=== PATIENT | male | born 1955 | race Caucasian/White ===

== ENCOUNTER 2021-09-19 20:42 | Inpatient (IN) | payer MEDICARE, SELFPAY ==
--- NOTE | ~2021-09-19 | CT_ITS ---
EXAMINATION: CT brain wo con DATE: 09/19/2021 22:22 INDICATION: syncope episode today with dizziness . TECHNIQUE: Computed tomography (CT) of the head was performed without intravenous contrast. The mA wa s adjusted according to patient size. Iterative reconstruction technique was employed. The dose-lengt h product was 681.00 mGy-cm. COMPARISON: None FINDINGS: No acute intracranial hemorrhage or extra-axial fluid collection. No hydrocephalus, mass, or herniation. No acute ischemic infarct. Unremarkable dural venous sinus attenuation. No acute osseous abnormality. The aerated spaces are clear. Atherosclerotic intracranial consultations. Bilateral basal ganglia calcifications. IMPRESSION: No acute intracranial process. Reviewed, dictated and finalized at location K.
--- NOTE | ~2021-09-19 | US_ITS ---
EXAMINATION: US abdomen limited DATE: 09/21/2021 15:39 INDICATION: Liver mass. TECHNIQUE: Multiple grayscale and Doppler ultrasound images of the abdomen were obtained. COMPARISON: CT abdomen and pelvis 09/21/2021 FINDINGS: The visualized portions of the head and body of the pancreas are normal. There is diffuse h epatic steatosis. There is a 3.1 cm hypoechoic mass in the liver. There is normal flow in main portal vein. The gallbladder is normal in size. No gallstones or gallbladder wall thickening. There was no sonographic Hauser sign. The common duct is normal and measures 4 mm. IMPRESSION: 1. 3.1 cm liver mass, which may be benign or malignant. Abdomen MRI without and with contrast is adrien mmended. 2. Diffuse hepatic steatosis. Reviewed, dictated and finalized at location B. IMPRESSION: 1. 3.1 cm liver mass, which may be benign or malignant. Abdomen MRI without and with contrast is recommended. 2. Diffuse hepatic steatosis.
--- NOTE | ~2021-09-19 | XR_ITS ---
EXAMINATION: XR chest 2V DATE: 09/20/2021 13:09 INDICATION: Fever. Syncope. TECHNIQUE: Frontal and lateral views of the chest were obtained on 3 radiographs. COMPARISON: None. FINDINGS: There is elevation of right hemidiaphragm. There is mild atelectasis in the lower lung zone s. No pleural effusion or pneumothorax. The heart size is normal. IMPRESSION: 1. Elevation of right hemidiaphragm. 2. Mild atelectasis in the lower lung zones. Reviewed, dictated and finalized at location B.
--- NOTE | ~2021-09-19 | CT_ITS ---
EXAMINATION: CT abdomen pelvis wo con DATE: 09/21/2021 09:35 INDICATION: Febrile and leukocytosis. TECHNIQUE: Computed tomography (CT) of the abdomen and pelvis was performed without intravenous contr ast. Automated exposure control and iterative reconstruction technique were employed. The dose-length product was 605.46 mGy-cm. COMPARISON: None FINDINGS: Atelectasis with associated volume loss in the right lower lobe and prominent eventration of the righ t hemidiaphragm. Additional small amount of dependent and discoid atelectasis in the left lower lobe. Heart size is normal. No pericardial or pleural effusion. Large geographic region of hepatic steatos is at the dome of the liver. Indeterminate 2.6 x 2.1 cm hypodense lesion with irregular lobular leoncio ns in segment 5 of the liver. Gallbladder, spleen, pancreas, bilateral adrenal glands and right kidne y are normal. 1.4 cm exophytic cyst at the lower pole of the left kidney. Bladder is normal. Prostato megaly measuring 4.6 x 3.8 cm. There is some stool in the distal sigmoid colon with small amount of f luid scattered throughout the more proximal colon consistent with nonspecific diarrhea. Small bowel a nd appendix are normal. No bowel obstruction. No free intraperitoneal gas or fluid. No pathologically enlarged abdominal or pelvic lymphadenopathy. Small fat-containing left inguinal hernia. There is ca lcified atherosclerosis of the aorta and many of the other arteries. Small amount of calcification al christal the tunica at the base of the penis consistent with Peyronie's disease. Small bone island at the left femoral head. Mild scattered degenerative skeletal changes in the spine and pelvis. IMPRESSION: 1. Fluid throughout the proximal to mid colon consistent with nonspecific diarrhea. Correlate clinica lly for gastroenteritis. 2. Indeterminate 2.6 x 2.1 cm hypodense lesion in the right hepatic lobe. Differential would include small region of hepatic steatosis with larger region seen at the dome of liver, neoplasm either benig n or malignant or potentially hepatic abscess in the appropriate clinical setting. Recommend further evaluation with pre and postcontrast imaging. Favor MRI over CT. 3. Atelectasis in the bilateral lower lobes more prominent on the right where there is eventration of the right hemidiaphragm. 4. Small fat-containing left inguinal hernia. 5. Prostatomegaly. Reviewed, dictated and finalized at location A. IMPRESSION: 1. Fluid throughout the proximal to mid colon consistent with nonspecific diarr hea. Correlate clinically for gastroenteritis. 2. Indeterminate 2.6 x 2.1 cm hypodense lesion in the right hepatic lobe. Diffe rential would include small region of hepatic steatosis with larger region seen at the dome of liver, neoplasm either benign or malignant or potentially hepat ic abscess in the appropriate clinical setting. Recommend further evaluation wi th pre and postcontrast imaging. Favor MRI over CT. 3. Atelectasis in the bilateral lower lobes more prominent on the right where t here is eventration of the right hemidiaphragm. 4. Small fat-containing left inguinal hernia. 5. Prostatomegaly.
[2021-09-19 21:28] VITALS: BP 124/68; PULSE 108; RESP 20; TEMP 37.4; O2SAT 100
[2021-09-19 21:35] LABS: Glucose Point of Care 348 mg/dl (65-105)
--- NOTE | 2021-09-19 21:56 | ECG_ITS ---
Measurements Intervals [place] Rate: 110 P: 23 NC: 208 QRS: 12 QRSD: 81 T: -38 QT: 291 QTc: 394 Interpretive Statements SINUS TACHYCARDIA MINIMAL VOLTAGE CRITERIA FOR LVH, CONSIDER NORMAL VARIANT [MEETS CRITERIA IN ONE OF: R(aVL), S(V1), R(V5), R(V5/V6)+S(V1)] MODERATE T-WAVE ABNORMALITY, CONSIDER LATERAL ISCHEMIA [-0.1+ mV T-WAVE IN I/aVL/V5/V6] MODERATE T-WAVE ABNORMALITY, CONSIDER INFERIOR ISCHEMIA [-0.1+ mV T-WAVE IN II/aVF] ABNORMAL ECG NO PREVIOUS ECG AVAILABLE FOR COMPARISON Electronically Signed On 09-20-2021 10:02:13 CDT by Brandt Newell M.D.
--- NOTE | 2021-09-19 21:59 | ED.GENADULT ---
HPI - General Adult General Chief complaint: Nausea/Vomiting/Diarrhea Stated complaint: passed out, nausea History of Present Illness HPI narrative: The patient is a 66-year-old male with history of hypertension, hyperlipidemia, and diabetes. His hemoglobin A1c at 1 point was 11 at another point was 6-1/2. He is not on any diabetes medications at this point. He has an appointment to see his primary care provider in the next 2 weeks for a routine checkup. He presents today with an episode of syncope. He was sitting on the recliner and felt slightly dizzy. He got up and walked for about 20 ft then felt dizzy and lightheaded: he then had a syncopal episode that lasted 1 minute. No injuries. Did have nausea and an episode of dry heaves on the way here to the emergency room. Did have a loose diarrheal stool this morning. There is mild epigastric abdominal discomfort without radiation. No headache or diplopia or blurred vision or chest pain or pressure. No motor or sensory deficits. No urinary or respiratory complaints. Accu-Chek here in triage was 348. He has had 3-4 prior episodes of syncope in his lifetime, most recently 2 years ago at the time of that he had COVID-19. Related Data Home Medications Medication Instructions Recorded Confirmed amlodipine 10 mg tablet 1 tablet PO DAILY 09/19/21 09/19/21 aspirin 81 mg capsule 81 mg PO DAILY 09/19/21 09/19/21 atorvastatin 20 mg tablet 1 tablet PO DAILY 09/19/21 09/19/21 ezetimibe 10 mg tablet 1 tablet PO DAILY 09/19/21 09/19/21 losartan 50 mg-hydrochlorothiazide 1 tablet PO DAILY 09/19/21 09/19/21 12.5 mg tablet sertraline 50 mg tablet 1 tablet PO DAILY 09/19/21 09/19/21 Allergies Allergy/AdvReac Type Severity Reaction Status Date / Time clindamycin Allergy Unknown Verified 09/19/21 21:28 Penicillins Allergy Unknown Verified 09/19/21 21:28 Review of Systems Review of Systems: All systems reviewed & are unremarkable except as noted in HPI and below Constitutional: Constitutional: Reports no additional constitutional complaints, Denies anorexia, Denies body ache(s), Denies chills, Denies excessive sweating, Reports fatigue, Denies fever(s), Denies frequent falls, Denies headache(s), Reports malaise and Denies poor appetite Eyes: Eyes: Reports no additional eye complaints, Denies blurry vision, Denies change in vision, Denies irritation, Denies itchy eyes and Denies photophobia ENT: Reports system reviewed and no additional complaints, except as documented, Reports Normal hearing present, Denies change in voice, Denies dysphagia, Denies vertigo, Denies dizziness, Denies ear discharge, Denies headache(s), Denies hearing loss, Denies hoarseness, Denies nasal congestion, Denies neck pain, Denies sinus pressure, Denies sore throat and Denies throat swelling Cardiovascular: Cardiovascular: Reports no additional cardiovascular complaints, Denies chest pain, Denies syncope, Denies rapid heart rate, Denies irregular heart rhythm, Denies leg edema, Denies dyspnea and Denies slow heart rate Respiratory: Respiratory: Reports no additional respiratory complaints, Denies cough, Denies dyspnea, Denies stridor and Denies wheezing Gastrointestinal: Gastrointestinal: Reports no additional gastrointestinal complaints, Reports abdominal pain (epigastric ), Denies melena, Denies hematochezia, Denies dysphagia, Reports diarrhea, Reports nausea and Reports vomiting Genitourinary: Genitourinary: Denies hematuria, Denies oliguria, Denies dysuria, Denies flank pain, Denies urinary frequency and Denies urinary urgency Musculoskeletal: Musculoskeletal: Reports no additional musculoskeletal complaints, Denies abnormal gait, Denies back pain, Denies myalgias, Denies arthralgias, Denies joint swelling, Denies limited range of motion, Denies muscle cramps, Denies muscle weakness, Denies neck pain and Denies numbness Integumentary/Breasts: Skin/Breast: Reports system reviewed and no additional complaints, e
[2021-09-19] MEDS: SODIUM CHLORIDE 0.9% IV 1,000 ML 999 ML IV CONT (22:06)
[2021-09-19] MEDS: ONDANSETRON INJ 4 MG/2 ML VIAL IV PUSH (22:06)
[2021-09-19] MEDS: INSULIN HUMAN REGULAR (*BKC) 100 UNITS/ML IV PUSH ×2 (22:07→23:24)
[2021-09-19 22:10] LABS: Basophils Absolute Auto 0.02 K/mm3 (0.00-0.10); Basophils Percent Auto 0.1 % (0.0-1.0); Eosinophils Absolute Auto 0.01 K/mm3 (0.02-0.50); Eosinophils Percent Auto 0.1 % (1.0-6.0); Hematocrit 44.9 % (37.0-46.0); Hemoglobin 15.5 g/dL (12.4-15.3); Immature Granulocyte Absolute 0.06 K/mm3 (0.00-0.00); Immature Granulocyte Percent A 0.4 % (0.0-0.0); Lymphocytes Absolute Auto 0.39 K/mm3 (1.10-4.50); Lymphocytes Percent Auto 2.9 % (18.0-42.0); Mean Corpuscular HGB Conc 34.5 g/dL (32.0-36.0); Mean Corpuscular Hemoglobin 29.8 pg (27.0-31.0); Mean Corpuscular Volume 86.3 fL (78.0-102.0); Mean Platelet Volume 9.4 fl (8.7-11.0); Monocytes Absolute Auto 0.59 K/mm3 (0.10-0.90); Monocytes Percent Auto 4.4 % (2.0-11.0); Neutrophils Absolute Auto 12.4 K/mm3 (1.7-7.2); Neutrophils Percent Auto 92.1 % (50.0-70.0); Platelet Count Result 260 K/mm3 (150-420); Red Cell Distribution Width 12.3 % (11.6-14.4); White Blood Count 13.4 K/mm3 (4.8-10.8)
[2021-09-19 22:19] LABS: Amphetamine Screen Urine Negative (Negative); Barbiturate Screen Urine Negative (Negative); Benzodiazepines Screen Urine Negative (Negative); Cannabinoid Screen Urine Negative (Negative); Cocaine Screen Urine Negative (Negative); Methadone Screen Urine Negative (Negative); Opiate Screen Urine Negative (Negative); Phencyclidine Screen Urine Negative (Negative)
[2021-09-19 22:27] LABS: Alanine Aminotransferase 53 U/L (16-63); Albumin Level 4.1 g/dL (3.4-5.0); Alkaline Phosphatase 112 U/L (46-116); Amylase 64 U/L (25-115); Anion Gap 9 mmol/L (8-16); Aspartate Amino Transferase 23 U/L (15-37); Bilirubin,Total 0.8 mg/dL (0.00-1.00); Blood Urea Nitrogen 18 mg/dL (7-18); Calcium 9.3 mg/dL (8.5-10.1); Carbon Dioxide 29 mmol/L (21-32); Chloride 98 mmol/L (98-108); Estimated CRCL calculation 42 ml/min; Estimated Glomerular Filt Rate 48; Ethanol < 3 mg/dL (0-6); Glucose 387 mg/dL (70-99); Lipase 134 U/L (73-393); Magnesium 1.6 mg/dL (1.8-2.4); Osmolality Calculated 299 mOsm/kg (285-295); Potassium 3.5 mmol/L (3.5-5.1); Sodium 136 mmol/L (136-145); Total Protein 7.7 g/dL (6.4-8.2); Troponin I 5.4 ng/L (0.00-60.4)
[2021-09-19 22:55] LABS: Glucose Point of Care 317 mg/dl (65-105)
--- NOTE | 2021-09-19 23:00 | PC.NURSE ---
Pt resting, continuing to watch pts. Blood sugar p being given IV insulin. Pt has no c/o and denies any sxs at this time, VSS.
[2021-09-19 23:34] VITALS: BP 118/83; PULSE 104; RESP 18; O2SAT 94; O2SAT 95
[2021-09-19 23:45] VITALS: O2SAT 93
[2021-09-19 23:46] VITALS: BP 129/71; O2SAT 94
[2021-09-19 23:51] LABS: Glucose Point of Care 323 mg/dl (65-105)
[2021-09-19 23:56] LABS: Acetone Negative (Negative); Add Urine Microscopic? YES; Appearance Urine Clear (Clear); Bilirubin Urine Negative (Negative); Blood Urine Negative (Negative); Color Urine Light Yellow (Yellow); Glucose Urine UA 3+ (Negative); Ketones Urine Negative (Negative); Leukocyte Esterase Ur Negative LEU/UL (Negative); Nitrate Urine Negative (Negative); Protein Urine Trace (Negative); Specific Grav Ur 1.015 (1.010-1.020); Urobilinogen Urine 0.2 mg/dL (0.2-1.0)
[2021-09-20] VITALS (47 sets, daily range): BP systolic 67–141; BP diastolic 42–96; PULSE 98–164; RESP 16–32; TEMP 37.2–38.7; O2SAT 91–97; BMI 29.6
[2021-09-20 00:04] LABS: Bacteria Urine Trace /hpf; RBC Urine 0-2 /hpf (0-2); WBC Urine 0-3 /hpf (0-3)
[2021-09-20 00:29] LABS: Glucose Point of Care 347 mg/dl (65-105)
[2021-09-20] MEDS: INSULIN HUMAN REGULAR (*BKC) 100 UNITS/ML 8 UNITS IV PUSH (00:52)
--- NOTE | 2021-09-20 01:09 | PC.NURSE ---
Pt resting, no changes in condition. Will continue to monitor blood sugar p given another 8U IVP Reg. insulin per order. VSS.
--- NOTE | 2021-09-20 01:59 | PC.NURSE ---
Pts B.S. now 235, pt resting, no c/o, vss. ERP in to discuss POC for d/c home and f/u care.
--- NOTE | 2021-09-20 02:12 | PC.NURSE ---
called stating her was going out again like at home , Nurse entered room, pt was unresponsive, diaphoretic and pupils dilated. BP noted to be 67/42. Pt slowly awakened p few minutes, pt placed on monitor showing ST, and BS now 250. Orders received from ERP for 1L bolus NS.
[2021-09-20] MEDS: SODIUM CHLORIDE 0.9% IV 1,000 ML 999 ML IV CONT (02:15)
[2021-09-20 02:21] LABS: Glucose Point of Care 250 mg/dl (65-105)
--- NOTE | 2021-09-20 02:21 | PC.NURSE ---
IVF infusing per order, Vance notified for pt admission.
--- NOTE | 2021-09-20 02:46 | PC.NURSE ---
ERP spoke to KRISTA Woodard about admission. Order to admit for full admission. Pt and aware on POC. VSS at this time c IVF bolus infusing.
[2021-09-20] MEDS: SODIUM CHLORIDE 0.9% IV 1,000 ML 125 ML IV CONT (03:15)
[2021-09-20 03:28] LABS: SARS-CoV-2 RNA PCR Negative (Negative)
[2021-09-20 03:45] LABS: Basophils Absolute Auto 0.01 K/mm3 (0.00-0.10); Basophils Percent Auto 0.1 % (0.0-1.0); Hemoglobin 12.9 g/dL (12.4-15.3); Immature Granulocyte Absolute 0.06 K/mm3 (0.00-0.00); Immature Granulocyte Percent A 0.5 % (0.0-0.0); Lymphocytes Absolute Auto 0.37 K/mm3 (1.10-4.50); Mean Corpuscular HGB Conc 33.9 g/dL (32.0-36.0); Mean Corpuscular Hemoglobin 29.5 pg (27.0-31.0); Mean Platelet Volume 9.6 fl (8.7-11.0); Monocytes Absolute Auto 0.73 K/mm3 (0.10-0.90); Monocytes Percent Auto 5.9 % (2.0-11.0); Neutrophils Absolute Auto 11.3 K/mm3 (1.7-7.2); Neutrophils Percent Auto 90.5 % (50.0-70.0); Platelet Count Result 228 K/mm3 (150-420); Red Blood Count 4.37 M/mm3 (4.70-6.10); Red Cell Distribution Width 12.5 % (11.6-14.4); White Blood Count 12.5 K/mm3 (4.8-10.8)
[2021-09-20 04:03] LABS: Alanine Aminotransferase 44 U/L (16-63); Albumin Level 3.2 g/dL (3.4-5.0); Alkaline Phosphatase 78 U/L (46-116); Anion Gap 8 mmol/L (8-16); Aspartate Amino Transferase 22 U/L (15-37); Bilirubin,Total 0.7 mg/dL (0.00-1.00); Blood Urea Nitrogen 15 mg/dL (7-18); Calcium 8.2 mg/dL (8.5-10.1); Carbon Dioxide 26 mmol/L (21-32); Chloride 104 mmol/L (98-108); Estimated CRCL calculation 46 ml/min; Estimated Glomerular Filt Rate 54; Glucose 282 mg/dL (70-99); Osmolality Calculated 296 mOsm/kg (285-295); Potassium 3.6 mmol/L (3.5-5.1); Sodium 138 mmol/L (136-145); Total Protein 6.3 g/dL (6.4-8.2)
[2021-09-20 04:16] LABS: Glucose Point of Care 259 mg/dl (65-105)
--- NOTE | 2021-09-20 04:24 | ADMGEN ---
This patient, Derick Hart, was admitted to 2nd Floor Room 226-2. Patient oriented to hospital policies and general routines including ID bracelet, bed and alarms, visiting hours, pain management, procedures, bathroom and other care routines, personal items, smoking policy, room service/diet, and visiting hours. Information on how to activate the Rapid Response Team has been discussed. Patient are encouraged to report perceived risks to care and to ask questions if they do not understand what they are told or what they should do.
[2021-09-20 08:24] LABS: Glucose Point of Care 242 mg/dl (65-105)
[2021-09-20 08:58] LABS: Hemoglobin A1C 10.7 % (<5.7)
[2021-09-20] MEDS: EZETIMIBE 10 MG TABLET PO (09:03)
[2021-09-20] MEDS: ASPIRIN 81 MG CHEWABLE TABLET PO (09:04)
[2021-09-20] MEDS: ATORVASTATIN 10 MG TABLET 20 MG PO (09:04)
[2021-09-20] MEDS: SERTRALINE HCL 50 MG TABLET PO (09:04)
--- NOTE | 2021-09-20 09:25 | PM.IMHP ---
H&P: HPI History of Present Illness Date/Time: 09/20/21 09:25 Chief Complaint: Syncopal episode Narrative: This is a 66-year-old male who presented to urgent care with complaints passing out. Patient has a past medical history of diabetes, hyperlipidemia, hypertension and orthostatic hypotension. According to patient he has been urinating and feeling thirsty more often these days. He noted that his primary care physician and him discussed controlling his diabetes via diet and exercise. Patient notes that the first 6 months was great afterwards he did not control his diet. Patient admits that he has not been eating or exercising properly. Patient states that he drinks plenty of water but he also urinated a large amount daily. Patient notes that while standing up he blacked out. According to his it was approximately 1 minute. Afterwards his and son convinced him that he would need to come to our emergency department. Patient notes that he saw a family service caseworker approximately 2 years ago due to his syncopal episode caused by orthostatic hypotension. Patient also noted that on his way here he had dry heaves. Vital signs 121/70, 110, 16, 95% on room air, WBCs 13.4, hemoglobin 15.5, hematocrit 44.9, platelets 260, sodium 136, potassium 3.5, BUN 18, creatinine 1.47, glucose 387, hemoglobin A1c 10.7, magnesium 1.6, liver function test within normal limits, troponin 5.4, UA with a trace of protein and glucose, CT of the head no acute findings, EKG sinus tach with a heart rate of 110. Patient admitted for dehydration uncontrolled diabetes, electrolyte imbalance and acute kidney injury. The patient denies SOB, CP, palpitation, extremity numbness, lightheadedness, dizziness, constipation, diarrhea, chills, or fever. Spoke with patient's primary care physician Dr. Calvo nurse informed her that patient will be started on glipizide along with metformin and instructed to take blood sugar readings daily and give results to primary care physician. PCP agrees with plan Review of Systems Review of Systems: A 14 organ system Review of Systems was performed and pertinent positives included in the HPI, otherwise remaining ROS is negative. [facility] Past Medical History Medical History (Updated 09/20/21 @ 09:45 by KAYLEIGH Rivas) Diabetes mellitus Hyperlipidemia Hypertension Family History Family History Father Diabetes mellitus Hypertension Sibling Diabetes mellitus Hypertension Social History Social History Smoking status: Never smoker Alcohol intake: former Substance use: never Substance use type: does not use Spiritual care concerns: No Meds Home Medications and Allergies Home Medications Medication Instructions Recorded Confirmed Type amlodipine 10 mg tablet 1 tablet PO DAILY 09/19/21 09/19/21 History aspirin 81 mg capsule 81 mg PO DAILY 09/19/21 09/19/21 History atorvastatin 20 mg tablet 1 tablet PO DAILY 09/19/21 09/19/21 History ezetimibe 10 mg tablet 1 tablet PO DAILY 09/19/21 09/19/21 History losartan 50 mg-hydrochlorothiazide 1 tablet PO DAILY 09/19/21 09/19/21 History 12.5 mg tablet sertraline 50 mg tablet 1 tablet PO DAILY 09/19/21 09/19/21 History Allergies Allergy/AdvReac Type Severity Reaction Status Date / Time clindamycin Allergy Unknown Verified 09/19/21 21:28 Penicillins Allergy Unknown Verified 09/19/21 21:28 Vital Signs Vital Signs - 24 hr 09/19/21 21:28 09/19/21 23:34 09/19/21 23:34 Temperature 99.3 F Pulse Rate 108 H 104 H Respiratory Rate 20 18 Blood Pressure 124/68 118/83 Pulse Oximetry 100 95 94 Oxygen Delivery Room Air Room Air 09/19/21 23:45 09/19/21 23:46 09/20/21 00:00 Temperature Pulse Rate Respiratory Rate Blood Pressure 129/71 Pulse Oximetry 93 94 94 Oxygen Delivery 09/20/21 00:01 09/20/21 00:15 09/20/21 00:16
[2021-09-20] MEDS: metFORMIN HCL XR 500 MG TAB.SR.24H PO (10:04)
[2021-09-20] MEDS: MAGNESIUM OXIDE 400 MG TABLET PO (10:05)
[2021-09-20] MEDS: glipiZIDE 5 MG TABLET 2.5 MG PO (10:05)
[2021-09-20 11:53] LABS: Glucose Point of Care 225 mg/dl (65-105)
[2021-09-20] MEDS: ACETAMINOPHEN 325 MG TABLET 650 MG PO ×2 (11:54→16:00)
[2021-09-20] MEDS: cefTRIAXone 1 GM in SODIUM CHLORIDE 0.9% IV 50 ML IVPB (13:21)
[2021-09-20 16:51] LABS: Glucose Point of Care 168 mg/dl (65-105)
[2021-09-20 21:05] LABS: Glucose Point of Care 228 mg/dl (65-105)
[2021-09-21] VITALS (21 sets, daily range): BP systolic 104–138; BP diastolic 61–84; PULSE 94–140; RESP 14–20; TEMP 36.6–38.7; O2SAT 92–99
[2021-09-21] MEDS: ACETAMINOPHEN 325 MG TABLET 650 MG PO ×2 (00:20→15:42)
--- NOTE | 2021-09-21 00:25 | PC.NURSE ---
Michele Burns NP, notified of pt's elevated pulse rate and temperature. New orders received and noted.
--- NOTE | 2021-09-21 00:30 | PC.NURSE ---
This nurse went to patient's room for VS check. Patient shaking/cold and said he couldn't catch his breath. Temperature 101.6, heart rate (blood pressure machine, telemetry and manual)=164, respirations rapid and shallow @ 32, SpO2 @ 93% on room air and BP 141/78. Patient's change in condition reported to charge nurse. Patient given PRN Tylenol while charge nurse called nurse practitioner.
--- NOTE | 2021-09-21 00:53 | ECG_ITS ---
Measurements Intervals [place] Rate: 116 P: 24 ME: 176 QRS: 7 QRSD: 87 T: -15 QT: 295 QTc: 410 Interpretive Statements SINUS TACHYCARDIA NONSPECIFIC ST & T-WAVE ABNORMALITY ABNORMAL ECG COMPARED TO ECG 09/19/2021 22:29:55 NO SIGNIFICANT CHANGES Electronically Signed On 09-21-2021 12:49:29 CDT by Brandt Newell M.D.
[2021-09-21] MEDS: METOPROLOL TARTRATE INJ 5 MG/5 ML VIAL IV PUSH (00:59)
[2021-09-21] MEDS: LORazepam INJ (*CRX) 2 MG/ML VIAL 0.5 MG IV PUSH (01:00)
--- NOTE | 2021-09-21 01:10 | PC.NURSE ---
Patient profusely sweating. Temperature down to 98.9. Metoprolol and Ativan have been given as ordered. Heart rate now @ 140. Lab and EKG being done.
[2021-09-21 01:13] LABS: Hematocrit 37.4 % (37.0-46.0); Hemoglobin 12.9 g/dL (12.4-15.3); Mean Corpuscular HGB Conc 34.5 g/dL (32.0-36.0); Mean Corpuscular Hemoglobin 29.9 pg (27.0-31.0); Mean Corpuscular Volume 86.6 fL (78.0-102.0); Mean Platelet Volume 9.4 fl (8.7-11.0); Platelet Count Result 181 K/mm3 (150-420); Red Blood Count 4.32 M/mm3 (4.70-6.10); Red Cell Distribution Width 12.5 % (11.6-14.4); White Blood Count 3.5 K/mm3 (4.8-10.8)
--- NOTE | 2021-09-21 01:20 | PC.NURSE ---
Patient's VS now stable. Patient's respirations even and unlabored. Denies shortness of breath. Patient says he feels fine now. No distress noted. Patient stood next to bed with SBA to use urinal. Call light in reach.
[2021-09-21 01:29] LABS: Alanine Aminotransferase 54 U/L (16-63); Alkaline Phosphatase 84 U/L (46-116); Anion Gap 9 mmol/L (8-16); Aspartate Amino Transferase 44 U/L (15-37); Bilirubin,Total 0.9 mg/dL (0.00-1.00); Blood Urea Nitrogen 13 mg/dL (7-18); Calcium 8.3 mg/dL (8.5-10.1); Carbon Dioxide 23 mmol/L (21-32); Chloride 105 mmol/L (98-108); Estimated CRCL calculation 49 ml/min; Estimated Glomerular Filt Rate 52; Glucose 274 mg/dL (70-99); Osmolality Calculated 294 mOsm/kg (285-295); Sodium 137 mmol/L (136-145); Total Protein 6.5 g/dL (6.4-8.2)
--- NOTE | 2021-09-21 01:46 | PC.NURSE ---
Notified Michele Burns NP, regarding pt's vital signs and lab results; New orders received and noted.
--- NOTE | 2021-09-21 02:08 | PC.NURSE ---
Patient appears to be sleeping by the rise and fall of his chest. No distress noted. Sinus tachycardia on belt dresser with heart rate @ 111. Call light in reach.
--- NOTE | 2021-09-21 03:01 | PC.NURSE ---
Patient appears to be sleeping by the rise and fall of his chest. Respirations even and unlabored. No distress noted. Call light in reach.
--- NOTE | 2021-09-21 04:05 | PC.NURSE ---
Patient awakened easily for VS. Respirations even and unlabored. Denies shortness of breath. Patient says he feels okay and has been sleeping good. Denies pain/complaints/needs @ this time. No distress noted. Call light in reach.
--- NOTE | 2021-09-21 05:25 | PC.NURSE ---
Patient appears to be sleeping by the rise and fall of his chest. Respirations even and unlabored. No distress noted. Call light in reach.
[2021-09-21] MEDS: glipiZIDE 5 MG TABLET 2.5 MG PO (06:23)
[2021-09-21 07:18] LABS: Glucose Point of Care 247 mg/dl (65-105)
[2021-09-21] MEDS: ASPIRIN 81 MG CHEWABLE TABLET PO (08:05)
[2021-09-21] MEDS: PANTOPRAZOLE SOD SESQUIHYDRATE 20 MG TAB PO (08:05)
[2021-09-21] MEDS: metFORMIN HCL XR 500 MG TAB.SR.24H PO (08:06)
[2021-09-21] MEDS: ATORVASTATIN 10 MG TABLET 20 MG PO (08:06)
[2021-09-21] MEDS: SERTRALINE HCL 50 MG TABLET PO (08:07)
[2021-09-21] MEDS: EZETIMIBE 10 MG TABLET PO (08:07)
[2021-09-21] MEDS: MAGNESIUM OXIDE 400 MG TABLET PO (08:07)
--- NOTE | 2021-09-21 08:28 | P.PN_ITS ---
Progress Note: A&P Assessment and Plan (1) Syncope: Code(s): R55 - Syncope and collapse Status: Acute Assessment and Plan: * History due orthostatic hypotension * Possibly secondary to dehydration versus orthostatic hypotension than likely dehydration * Orthostatic hypotension blood pressure readings * Continue telemetry * CT of the head unremarkable (2) Diabetes mellitus with hyperglycemia: Code(s): E11.65 - Type 2 diabetes mellitus with hyperglycemia Status: Acute Assessment and Plan: * Blood sugars greater than 300 on admission * Continue Accu-Chek with sliding scale hypoglycemic protocol * A1c 10.7 * Patient started on glipizide 5.0 daily and metformin * Will adjust medication as needed (3) Hyperlipidemia: Code(s): E78.5 - Hyperlipidemia, unspecified Status: Acute Assessment and Plan: * Continue statin (4) Hypertension: Code(s): I10 - Essential (primary) hypertension Status: Acute Assessment and Plan: * On admission patient hypotensive currently stable * Patient amlodipine, losartan with hydrochlorothiazide on hold for now * Started hydralazine with parameters * Continue to monitor blood pressure reading * Will adjust medication as needed * Patient will discharge home on home dosing (5) Acute kidney injury: Code(s): N17.9 - Acute kidney failure, unspecified Status: Acute Assessment and Plan: * Possibly secondary to dehydration 1.47>1.33 i>1.36 mproving * Renal dose medication * Avoid nephrotoxic agents (6) Orthostatic hypotension: Code(s): I95.1 - Orthostatic hypotension Status: Acute Assessment and Plan: * Lying 115/72 with a heart rate of 108 [id number]/70 with a heart rate of 111 standing 121/70 with a heart rate of 110 * Patient saw his balloon design printer 2 years ago for this condition has not had episode in 2 years. (7) Dehydration: Code(s): E86.0 - Dehydration Status: Acute Assessment and Plan: * As evidenced by hypotension, electrolyte imbalance and kidney injury * Continue IV hydration * Hydrochlorothiazide on hold * Vital signs as ordered (8) Febrile: Code(s): R50.9 - Fever, unspecified Status: Acute Assessment and Plan: * Patient febrile * Etiology unknown * WBCs 3.5 Mild atelectasis in the lower lung zones CT of the abdomen pending blood culture pending UA normal Subjective Date/time seen: 09/21/21 08:28 Review of Systems Review of Systems: ROS unobtainable: Yes other (Unobtainable due to patient's aggressive behavior) Exam Narrative: Patient notes that he feels much better but throughout the night he did have a fever with chills he also noted that he felt like he could not breathe after he received Ativan his situation got better. I did complete a number of tests to determine the source of his fever. Results pending patient is currently stable. The patient denies SOB, CP, palpitation, extremity numbness, lightheadedness, dizziness, constipation, diarrhea, chills, or fever. Objective Data Vital Signs Vital Signs: Vital Signs - 24 hr 09/20/21 09:00 09/20/21 09:02 09/20/21 09:04 Temperature Pulse Rate 108 H 111 H 110 H Respiratory Rate Blood Pressure 115/72 115/70 121/70 Pulse Oximetry Oxygen Delivery 09/20/21 11:54 09/20/21 11:54 09/20/21
--- NOTE | 2021-09-21 08:28 | WPDPN ---
Progress Note: A&P Assessment and Plan (1) Syncope: Code(s): R55 - Syncope and collapse Status: Acute Assessment and Plan: History due orthostatic hypotension Possibly secondary to dehydration versus orthostatic hypotension than likely dehydration Orthostatic hypotension blood pressure readings Continue telemetry CT of the head unremarkable (2) Diabetes mellitus with hyperglycemia: Code(s): E11.65 - Type 2 diabetes mellitus with hyperglycemia Status: Acute Assessment and Plan: Blood sugars greater than 300 on admission Continue Accu-Chek with sliding scale hypoglycemic protocol A1c 10.7 Patient started on glipizide 5.0 daily and metformin Will adjust medication as needed (3) Hyperlipidemia: Code(s): E78.5 - Hyperlipidemia, unspecified Status: Acute Assessment and Plan: Continue statin (4) Hypertension: Code(s): I10 - Essential (primary) hypertension Status: Acute Assessment and Plan: On admission patient hypotensive currently stable Patient amlodipine, losartan with hydrochlorothiazide on hold for now Started hydralazine with parameters Continue to monitor blood pressure reading Will adjust medication as needed Patient will discharge home on home dosing (5) Acute kidney injury: Code(s): N17.9 - Acute kidney failure, unspecified Status: Acute Assessment and Plan: Possibly secondary to dehydration 1.47>1.33 i>1.36 mproving Renal dose medication Avoid nephrotoxic agents (6) Orthostatic hypotension: Code(s): I95.1 - Orthostatic hypotension Status: Acute Assessment and Plan: Lying 115/72 with a heart rate of 108 [id number] with a heart rate of 111 standing 121/70 with a heart rate of 110 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 (7) Dehydration: Code(s): E86.0 - Dehydration Status: Acute Assessment and Plan: As evidenced by hypotension, electrolyte imbalance and kidney injury Continue IV hydration Hydrochlorothiazide on hold Vital signs as ordered (8) Febrile: Code(s): R50.9 - Fever, unspecified Status: Acute Assessment and Plan: Patient febrile Etiology unknown WBCs 3.5 Mild atelectasis in the lower lung zones CT of the abdomen pending blood culture pending UA normal Subjective Date/time seen: 09/21/21 08:28 Review of Systems Review of Systems: ROS unobtainable: Yes other (Unobtainable due to patient's aggressive behavior) Exam Narrative: Patient notes that he feels much better but throughout the night he did have a fever with chills he also noted that he felt like he could not breathe after he received Ativan his situation got better. I did complete a number of tests to determine the source of his fever. Results pending patient is currently stable. The patient denies SOB, CP, palpitation, extremity numbness, lightheadedness, dizziness, constipation, diarrhea, chills, or fever. Objective Data Vital Signs Vital Signs: Vital Signs - 24 hr 09/20/21 09:00 09/20/21 09:02 09/20/21 09:04 Temperature Pulse Rate 108 H 111 H 110 H Respiratory Rate Blood Pressure 115/72 115/70 121/70 Pulse Oximetry Oxygen Delivery 09/20/21 11:54 09/20/21 11:54 09/20/21 12:00 Temperature 101.1 F H 101.1 F H Pulse Rate 114 H 121 H Respiratory Rate 17 Blood Pressure 124/72 Pulse Oximetry 95 Oxygen Delivery Room Air 09/20/21 16:00 09/20/21 16:00 09/20/21 16:00 Temperature 99.8 F H 99.8 F H Pulse Rate 104 H 107 H Respiratory Rate 17 Blood Pressure 106/67 Pulse Oximetry 96 Oxygen Delivery Room Air 09/20/21 17:00 09/20/21 19:46 09/20/21 19:48 Temperature 99.6 F Pulse Rate 110 H 110 H Respiratory Rate Blood Pressure 124/72 Pulse Oximetry Oxygen Delivery 09/20/21 19:49 09/20/21 19:50 09/20/21 19:51 Temperature 99.6 F
[2021-09-21] MEDS: POTASSIUM CHLORIDE 20 MEQ TABLET 40 MEQ PO (08:45)
[2021-09-21] MEDS: CALCIUM CARBONATE (OSCAL) 500 MG TABLET 250 MG PO (08:45)
[2021-09-21 09:37] LABS: Influenza A QL RT-PCR Negative (Negative); Influenza B QL RT-PCR Negative (Negative); SARS-CoV-2 RNA PCR Negative (Negative)
[2021-09-21 11:26] LABS: Glucose Point of Care 230 mg/dl (65-105)
[2021-09-21] MEDS: LOSARTAN POTASSIUM 50 MG TABLET PO (11:44)
[2021-09-21] MEDS: cefTRIAXone 1 GM in SODIUM CHLORIDE 0.9% IV 50 ML IVPB (11:53)
[2021-09-21] MEDS: metroNIDAZOLE 500 MG/ISO 100ML 500 MG/100 ML BAG 100 MG IVPB (12:49)
[2021-09-21 16:49] LABS: Glucose Point of Care 208 mg/dl (65-105)
[2021-09-21 21:26] LABS: Glucose Point of Care 223 mg/dl (65-105)
[2021-09-22 04:00] VITALS: BP 129/83; PULSE 101; PULSE 73; RESP 18; TEMP 36.3; O2SAT 94
[2021-09-22 05:28] LABS: Hematocrit 41.3 % (37.0-46.0); Hemoglobin 13.7 g/dL (12.4-15.3); Mean Corpuscular HGB Conc 33.2 g/dL (32.0-36.0); Mean Corpuscular Hemoglobin 28.7 pg (27.0-31.0); Mean Corpuscular Volume 86.4 fL (78.0-102.0); Mean Platelet Volume 9.5 fl (8.7-11.0); Platelet Count Result 211 K/mm3 (150-420); Red Blood Count 4.78 M/mm3 (4.70-6.10); Red Cell Distribution Width 12.6 % (11.6-14.4); White Blood Count 6.5 K/mm3 (4.8-10.8)
[2021-09-22 05:44] LABS: Alanine Aminotransferase 49 U/L (16-63); Albumin Level 2.8 g/dL (3.4-5.0); Alkaline Phosphatase 83 U/L (46-116); Anion Gap 5 mmol/L (8-16); Aspartate Amino Transferase 31 U/L (15-37); Bilirubin Direct 0.2 mg/dL (0-0.2); Bilirubin,Total 0.6 mg/dL (0.00-1.00); Blood Urea Nitrogen 11 mg/dL (7-18); Calcium 8.5 mg/dL (8.5-10.1); Carbon Dioxide 26 mmol/L (21-32); Chloride 106 mmol/L (98-108); Estimated CRCL calculation 59 ml/min; Estimated Glomerular Filt Rate > 60; Glucose 214 mg/dL (70-99); Osmolality Calculated 289 mOsm/kg (285-295); Potassium 3.7 mmol/L (3.5-5.1); Sodium 137 mmol/L (136-145); Total Protein 6.7 g/dL (6.4-8.2)
[2021-09-22 06:08] LABS: Lactic Acid Reflex 0.9 mmol/L (0.4-2.0)
[2021-09-22] MEDS: glipiZIDE 5 MG TABLET PO (06:32)
[2021-09-22 07:24] LABS: Glucose Point of Care 203 mg/dl (65-105)
[2021-09-22 08:00] VITALS: BP 132/80; PULSE 99; RESP 20; TEMP 36.7; O2SAT 94
[2021-09-22] MEDS: POTASSIUM CHLORIDE 20 MEQ TABLET 40 MEQ PO (08:25)
[2021-09-22] MEDS: metFORMIN HCL XR 500 MG TAB.SR.24H PO (08:25)
[2021-09-22] MEDS: SERTRALINE HCL 50 MG TABLET PO (08:26)
[2021-09-22] MEDS: MAGNESIUM OXIDE 400 MG TABLET PO (08:26)
[2021-09-22] MEDS: ASPIRIN 81 MG CHEWABLE TABLET PO (08:26)
[2021-09-22] MEDS: PANTOPRAZOLE SOD SESQUIHYDRATE 20 MG TAB PO (08:27)
[2021-09-22] MEDS: EZETIMIBE 10 MG TABLET PO (08:27)
[2021-09-22] MEDS: ATORVASTATIN 10 MG TABLET 20 MG PO (08:27)
[2021-09-22] MEDS: LOSARTAN POTASSIUM 50 MG TABLET PO (08:27)
[2021-09-22] MEDS: CALCIUM CARBONATE (OSCAL) 500 MG TABLET 250 MG PO (08:29)
--- NOTE | 2021-09-22 10:56 | P.DS_ITS ---
DS: Admitting Diagnosis Discharge Date 09/22/2021 Admitting Diagnosis Syncopal episode, DS: Discharge Diagnosis Discharge Diagnosis (1) Syncope: Code(s): R55 - Syncope and collapse Status: Acute Assessment and Plan: * Belt * History due orthostatic hypotension * Possibly secondary to dehydration versus orthostatic hypotension than likely dehydration * CT of the head unremarkable (2) Diabetes mellitus with hyperglycemia: Code(s): E11.65 - Type 2 diabetes mellitus with hyperglycemia Status: Acute Assessment and Plan: * Blood sugars greater than 300 on admission * Continue Accu-Chek with sliding scale hypoglycemic protocol * A1c 10.7 * Patient started on glipizide 5.0 daily and metformin * Follow-up with primary care physician (3) Hyperlipidemia: Code(s): E78.5 - Hyperlipidemia, unspecified Status: Acute Assessment and Plan: * Continue statin (4) Hypertension: Code(s): I10 - Essential (primary) hypertension Status: Acute Assessment and Plan: * On admission patient hypotensive currently stable * Patient amlodipine, losartan with hydrochlorothiazide on hold for now * Started hydralazine with parameters * Continue to monitor blood pressure reading * Will adjust medication as needed * Patient will discharge home on home dosing (5) Acute kidney injury: Code(s): N17.9 - Acute kidney failure, unspecified Status: Acute Assessment and Plan: * Possibly secondary to dehydration 1.47>1.33 i>1.36 mproving * Renal dose medication * Avoid nephrotoxic agents (6) Orthostatic hypotension: Code(s): I95.1 - Orthostatic hypotension Status: Acute Assessment and Plan: * Lying 115/72 with a heart rate of 108 [id number] with a heart rate of 111 standing 121/70 with a heart rate of 110 * Patient saw his manager care management 2 years ago for this condition has not had episode in 2 years. (7) Dehydration: Code(s): E86.0 - Dehydration Status: Acute Assessment and Plan: * As evidenced by hypotension, electrolyte imbalance and kidney injury * Continue IV hydration * Hydrochlorothiazide on hold * Vital signs as ordered (8) Febrile: Code(s): R50.9 - Fever, unspecified Status: Acute Assessment and Plan: * Patient febrile * Etiology unknown * WBCs 3.5 Mild atelectasis in the lower lung zones CT of the abdomen pending blood culture pending UA normal (9) Liver mass: Code(s): R16.0 - Hepatomegaly, not elsewhere classified Status: Acute Assessment and Plan: * CT and ultrasound indicates liver mass benign versus malignant versus abscess * Patient order MRI as recommended with results going to primary care physician. Primary care physician updated on patient's condition * Patient discharged home with cefdinir for possible abscess of the liver * Patient agreed to follow-up with his primary care physician Plan Liver mass, syncopal episode, febrile and uncontrolled diabetes DS: Summary Hospital Course Reason for hospitalization: Syncopal episode Hospital Course: This is a 66-year-old male who presented to urgent care with complaints of passing out.? Patient has a past medical history of diabetes, hyperlipidemia, hypertension and orthostatic hypotension.? According to patient he has been urinating and feeling thirsty more often these days.? He noted that his primary care physician and him discussed controlling his diabetes via diet and exercise.? Patient notes that the first
--- NOTE | 2021-09-22 10:56 | PM.DS ---
DS: Admitting Diagnosis Discharge Date 09/22/2021 Admitting Diagnosis Syncopal episode, DS: Discharge Diagnosis Discharge Diagnosis (1) Syncope: Code(s): R55 - Syncope and collapse Status: Acute Assessment and Plan: Belt History due orthostatic hypotension Possibly secondary to dehydration versus orthostatic hypotension than likely dehydration CT of the head unremarkable (2) Diabetes mellitus with hyperglycemia: Code(s): E11.65 - Type 2 diabetes mellitus with hyperglycemia Status: Acute Assessment and Plan: Blood sugars greater than 300 on admission Continue Accu-Chek with sliding scale hypoglycemic protocol A1c 10.7 Patient started on glipizide 5.0 daily and metformin Follow-up with primary care physician (3) Hyperlipidemia: Code(s): E78.5 - Hyperlipidemia, unspecified Status: Acute Assessment and Plan: Continue statin (4) Hypertension: Code(s): I10 - Essential (primary) hypertension Status: Acute Assessment and Plan: On admission patient hypotensive currently stable Patient amlodipine, losartan with hydrochlorothiazide on hold for now Started hydralazine with parameters Continue to monitor blood pressure reading Will adjust medication as needed Patient will discharge home on home dosing (5) Acute kidney injury: Code(s): N17.9 - Acute kidney failure, unspecified Status: Acute Assessment and Plan: Possibly secondary to dehydration 1.47>1.33 i>1.36 mproving Renal dose medication Avoid nephrotoxic agents (6) Orthostatic hypotension: Code(s): I95.1 - Orthostatic hypotension Status: Acute Assessment and Plan: Lying 115/72 with a heart rate of 108 [id number] with a heart rate of 111 standing 121/70 with a heart rate of 110 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 (7) Dehydration: Code(s): E86.0 - Dehydration Status: Acute Assessment and Plan: As evidenced by hypotension, electrolyte imbalance and kidney injury Continue IV hydration Hydrochlorothiazide on hold Vital signs as ordered (8) Febrile: Code(s): R50.9 - Fever, unspecified Status: Acute Assessment and Plan: Patient febrile Etiology unknown WBCs 3.5 Mild atelectasis in the lower lung zones CT of the abdomen pending blood culture pending UA normal (9) Liver mass: Code(s): R16.0 - Hepatomegaly, not elsewhere classified Status: Acute Assessment and Plan: CT and ultrasound indicates liver mass benign versus malignant versus abscess Patient order MRI as recommended with results going to primary care physician. Primary care physician updated on patient's condition Patient discharged home with cefdinir for possible abscess of the liver Patient agreed to follow-up with his primary care physician Plan Liver mass, syncopal episode, febrile and uncontrolled diabetes DS: Summary Hospital Course Reason for hospitalization: Syncopal episode Hospital Course: This is a 66-year-old male who presented to urgent care with complaints of passing out.? Patient has a past medical history of diabetes, hyperlipidemia, hypertension and orthostatic hypotension.? According to patient he has been urinating and feeling thirsty more often these days.? He noted that his primary care physician and him discussed controlling his diabetes via diet and exercise.? Patient notes that the first 6 months was great afterwards he did not control his diet.? Patient admits that he has not been eating or exercising properly.? Patient states that he drinks plenty of water but he also urinated a large amount daily.? Patient notes that while standing up he blacked out.? According to his it was approximately 1 minute.? Afterwards his and son convinced him that he would need to come to our emergency department. According to patient his diabetes
--- NOTE | 2021-09-22 11:25 | PC.NURSE ---
Patient discharged home at 1125 via personal vehicle, accompanied by significant other. Discharge instructions given, patient states understanding.
--- NOTE | 2021-09-27 13:04 | PC.NURSE ---
Spouse states they received and understood the discharge instructions. Spouse also states everything was handled very well and we were very impressed .
[2021-10-17 08:27] LABS: Glucose Point of Care 235 mg/dl (65-105)
== END 2021-09-22 11:25 | disposition home or self-care (01) | DRG 872 ==
LOC: CHSED 09-20 03:16 → CHS2ND 09-20 06:52
PROVIDERS: Nurse Practitioner; Admitting Provider Internal Medicine; Emergency Provider Emergency Medicine; Visit Provider Internal Medicine
DX: A41.89 Other specified sepsis (principal); N17.9 Acute kidney failure, unspecified; E86.0 Dehydration; K52.9 Noninfective gastroenteritis and colitis, unspecified; R50.9 Fever, unspecified; I95.1 Orthostatic hypotension; I10 Essential (primary) hypertension; E78.5 Hyperlipidemia, unspecified; E11.65 Type 2 diabetes mellitus with hyperglycemia; R16.0 Hepatomegaly, not elsewhere classified
CPT/HCPCS: 36415; 70450; 71046; 74176; 76705; 80053; 80307; 81001; 82010; 82150; 82248; 82948; 83036; 83605; 83690; 83735; 84484; 85025; 85027; 87040; 87086; 87088; 87147; 87186; 87502; 93005; 96361; 96374; 96375; 96376; 99285; A9270; C9803; J0696; J1815; J2060; J2405; J7030; U0003; U0005

== ENCOUNTER 2021-09-30 06:36 | Outpatient (CLI) | payer MEDICARE, SELFPAY ==
--- NOTE | ~2021-09-30 | MR_ITS ---
EXAMINATION: MR abdomen wo/w con INDICATION: Hepatomegaly not elsewhere classified, liver mass TECHNIQUE: Coronal SSFSE ARC, WATER:coronal LAVA-FLEX, Coronal 2D FIESTA FatSat, Axial SSFSE BH ARC, Axial 3D DualEcho BH, Axial SSFSE-IR, Axial DWI b=500, Axial 2D FIESTA FatSat, pre and dynamic postco ntrast Axial LAVA ARC, postcontrast Coronal In and Opposed phase LAVA FLEX COMPARISON: 09/21/2021 CONTRAST: Multihance, 20 cc FINDINGS: There is a 3.7 x 2.2 cm T1 hypointense, slightly T2 hyperintense mass in liver segment V. T he mass demonstrates multiple small internal cystic components with peripheral enhancement and enhanc ement of the septations. This appears of slightly increased in size since the recent CT and ultrasoun d. No additional liver mass is identified. The spleen, pancreas, gallbladder, and adrenal glands are normal. The kidneys are unremarkable. There are no pathologically enlarged abdominal lymph nodes. No dilated loops of bowel are evident. IMPRESSION: 1. Findings suspicious for small liver abscess. Differential diagnosis includes cystic liver neoplasm although this is considered less likely given apparent change in size over the short interval betwee n exams. Percutaneous drainage would likely be challenging given current size and location. Recommend trial of antibiotic therapy, continue clinical monitoring and follow-up imaging to assess treatment response. Reviewed, dictated and finalized at location A. IMPRESSION: 1. Findings suspicious for small liver abscess. Differential diagnosis includes cystic liver neoplasm although this is considered less likely given apparent c hange in size over the short interval between exams. Percutaneous drainage woul d likely be challenging given current size and location. Recommend trial of ant ibiotic therapy, continue clinical monitoring and follow-up imaging to assess t reatment response.
== END 2021-09-30 06:37 | disposition home or self-care (01) ==
LOC: CHSIMG 06:38
PROVIDERS: Visit Provider Nurse Practitioner
DX: R16.0 Hepatomegaly, not elsewhere classified (principal)
CPT/HCPCS: 74183; A9577

== ENCOUNTER 2024-10-15 15:05 | Emergency (ER) | payer OTHER, SELFPAY ==
--- OUTSIDE RECORDS SUMMARY | 2024-10-15 15:07 | XMS_ITS | Referral Summary ---
Author Organization [facility] Building A Address [address] [place] [address] Care Team Providers Care Endodontist Name Role Phone Aftab Enciso MD Unavailable [phone] Bonifacio Jack MD Primary Care Provider [phone] Phuong Flanagan NP Unavailable [phone] Encounters Date Type Department Care Team Description 5 Results Follow-Up [facility] G[facility]ology at [place] [address] [facility] [address] [place] [phone] Shanna Funes MD Surgical pathology 5 8:41 AM CDT Anesthesia Event [address] [address] Cuca Reese MD 5 8:30 AM CDT - 5 9:00 AM CDT Surgery [address] [address] Shanna Funes MD ESOPHAGOGASTRODUODENOSCOPY BIOPSY 5 7:15 AM CDT - 5 9:49 AM CDT Hospital Encounter [address] [address] Shanna Funes MD Erosive esophagitis Discharge Disposition: Discharge to home or self care 5 Telephone [facility] Primary Care at [place] [address] [place] [phone] Bonifacio Jack MD Appointment 5 9:30 AM CDT Office Visit [facility] [place] [address] [place] [address] Bonifacio Jack MD Encounter for Medicare annual wellness exam (Primary Dx); Type 2 diabetes mellitus with hyperglycemia, without long-term current use of insulin (HCC); Class 1 obesity due to excess calories without serious comorbidity with body mass index (BMI) of 30.0 to 30.9 in adult; Coronary artery disease of [place] artery of [place] heart with stable angina pectoris; Hyperlipidemia associated with type 2 diabetes mellitus (HCC); Hypertension associated with diabetes (HCC); Prostate cancer screening; Subclinical hypothyroidism 5 Telephone [facility] Gastroenterology at [address] [place] [address] Neelam Peterson EGD Instructions from Last 3 Months Allergies Active Allergy Reactions Criticality Noted Date Comments Amoxicillin Other (See comments) Low 09/29/2018 Lip tingling Clindamycin Other (See comments) Low 09/27/2021 Lip tingles , get red Medications aspirin 81 mg tablet Take 1 tablet (81 mg total) by mouth daily Active sertraline (ZOLOFT) 50 mg tablet TAKE 1 TABLET DAILY 90 tablet 3 4 Active famotidine (PEPCID) 40 mg tablet Take 1 tablet (40 mg total) by mouth daily 90 tablet 3 4 01/23/20 25 Active glimepiride (AMARYL) 2 mg tablet TAKE 1 TABLET DAILY BEFORE BREAKFAST 90 tablet 3 5 Active losartan-hydroC HLOROthiazide (HYZAAR) 50-12.5 mg per tablet TAKE 1 TABLET DAILY 90 tablet 3 5 Active amLODIPine (NORVASC) 10 mg tablet TAKE 1 TABLET DAILY 90 tablet 3 5 Active atorvastatin (LIPITOR) 20 mg tablet TAKE 1 TABLET DAILY 90 tablet 3 5 Active metFORMIN XR (GLUCOPHAGE XR) 750 mg 24 hr tablet TAKE 1 TABLET DAILY WITH BREAKFAST 100 tablet 1 5 Active omeprazole (PriLOSEC) 20 mg capsule Take 1 capsule (20 mg total) by mouth daily 90 capsule 3 5 09/17/19 26 Active Active Problems Problem Noted Date Diagnosed Date Infective otitis externa of left ear 12/11/2023 Assessment & Plan (12/11/2023 11:23 AM CDT): Avoid ear cleaning techniques Avoid water to ears Continue Hearing aids Use ear muff style hearing protection Erosive esophagitis 11/19/2023 Personal history of colonic polyps 04/22/2023 Family history of colon cancer 04/22/2023 Dysphagia 04/22/2023 Type 2 diabetes mellitus with hyperglycemia 01/07 Assessment & Plan (09/14/2024 7:35 AM CDT): Lab Results Component Value Date HGBA1C 7.7 03/03/2024 HGBA1C 7.6 08/28/2023 HGBA1C 8.4 (H) 01/21/2023 Lab Results Component Value Date LDLCALC 141 (H) 03/03/2024 CREATININE 1.00 03/03/2024 Not at goal at this time <7%, slightly worse despite starting amaryl 2 mg Staets that he felt weird and has only been taking half a pill Slight improvement but not near goal Cotninue metformin 750 mg xr every day Start amaryl 2mg every day Assessment & Plan (03/03/2024 7:44 AM FILM READER): Lab Results Component Value Date HGBA1C 7.7 03/03/2024 HGBA1C 7.6 08/28/2023 HGBA1C 8.4 (H) 01/21/2023 Lab Results Component Value Date LDLCALC 111 01/21/2023 CREATININE 1.05 01/21/2023 Not at goal at this time <7%, slightly worse despite starting amaryl 2 mg Staets that he felt weird and has only been taking half a pill Slight improvement but not near goal Cotninue metformin 750 mg xr every day Start amaryl 2mg every day Assessment & Plan (08/28/2023 1:38 PM CDT): Lab Results Component Value Date HGBA1C 7.6 08/28/2023 HGBA1C 8.4 (H) 01/21/2023 HGBA1C 6.6 07/30/2022 Lab Results Component Value Date LDLCALC 111 01/21/2023 CREATININE 1.05 01/21/2023 Not at goal at this time <7% Slight improvement but not near goal Cotninue metformin 750 mg xr every day Start amaryl 2mg every day GERD (gastroesophageal reflux disease) Assessment & Plan (07/30/2022 9:01 AM CDT): Worsening sx - had previously tried higher dose but upset his stomach Will try omeprazole 40 mqd Class 1 obesity due to exces s calories without serious comorbidity with body mass index (BMI) of 30.0 to 30.9 in adult 07/30/2022 Assessment & Plan (09/14/2024 7:35 AM CDT): Wt Readings from Last 3 Encounters: 09/14/24 87.3 kg (192 lb 8 oz) 03/03/24 88.8 kg (195 lb 11.2 oz) 12/11/23 87.5 kg (193 lb) BMI Readings from Last 3 Encounters: 09/14/24 31.09 kg/m 03/03/24 31.60 kg/m 12/11/23 31.17 kg/m Not at goal of bmi <30 Continue diet and exercise BMI Follow-up includes: nutrition counseling and exercise counseling. Assessment & Plan (03/03/2024 7:50 AM FILM READER): Wt Readings from Last 3 Encounters: 03/03/24 88.8 kg (195 lb 11.2 oz) 12/11/23 87.5 kg (193 lb) 11/13/23 83.9 kg (185 lb) BMI Readings from Last 3 Encounters: 03/03/24 31.60 kg/m 12/11/23 31.17 kg/m 11/13/23 29.86 kg/m Not at goal of bmi <30 Continue diet and exercise BMI Follow-up includes: nutrition counseling and exercise counseling. Assessment & Plan (08/28/2023 1:39 PM CDT): Wt Readings from Last 3 Encounters: 08/28/23 84.5 kg (186 lb 3.2 oz) 01/30/23 86.9 kg (191 lb 8 oz) 07/30/22 85.5 kg (188 lb 6.4 oz) BMI Readings from Last 3 Encounters: 08/28/23 30.07 kg/m 01/30/23 30.92 kg/m 07/30/22 30.42 kg/m Not at goal of bmi <30 Continue diet and exercise BMI Follow-up includes: nutrition counseling and exercise counseling. Assessment & Plan (01/30/2023 9:03 AM CDT): Wt Readings from Last 3 Encounters: 01/30/23 86.9 kg (191 lb 8 oz) 07/30/22 85.5 kg (188 lb 6.4 oz) 01/29/22 83 kg (183 lb) BMI Readings from Last 3 Encounters: 01/30/23 30.92 kg/m 07/30/22 30.42 kg/m 01/29/22 29.55 kg/m Not at goal of bmi <30 Continue diet and exercise BMI Follow-up includes: nutrition counseling and exercise counseling. Assessment & Plan (07/30/2022 10:04 AM CDT): Wt Readings from Last 3 Encounters: 07/30/22 85.5 kg (188 lb 6.4 oz) 01/29/22 83 kg (183 lb) 10/03/21 82.7 kg (182 lb 6.4 oz) BMI Readings from Last 3 Encounters: 07/30/22 30.42 kg/m 01/29/22 29.55 kg/m 10/03/21 29.45 kg/m Not at goal of bmi <30 Continue diet and exercise BMI Follow-up includes: nutrition counseling and exercise counseling. Encounter for Medicare annual wellness exam 07/08 Assessment & Plan (09/14/2024 7:35 AM CDT): A yearly Medicare Annual Wellness Visit has been performed today. Dana Hart is not up to date on screening tests. They are in need of Diabetic eye exam- these have been ordered. Patient is not up to date on needed preventative vaccinations; Is in need of Tdap/Td and Covid-19 (booster). These have been ordered/arranged unless otherwise indicated. Discussed lifestyle modifications, diet and exercise. Routine blood work ordered/reviewed today. Yearly vision and dental examinations. Assessment & Plan (08/28/2023 2:05 PM CDT): A yearly Medicare Annual Wellness Visit has been performed today. Dana Hart is not up to date on screening tests. They are in need of Colon cancer screening- these have been ordered. Patient is not up to date on needed preventative vaccinations; Is in need of Tdap/Td. These have been ordered/arranged unless otherwise indicated. Assessment & Plan (07/30/2022 9:12 AM CDT): A yearly Medicare Annual Wellness Visit has been performed today. Dana Hart is not up to date on screening tests. They are in need of AAA Screening- these have been ordered. Patient is not up to date on needed preventative vaccinations; Is in need of Pneumonia (Prevnar-13 or Pneumovax-23). These have been ordered/arranged unless otherwise indicated. Diabetes mellitus 04/03/2021 Assessment & Plan (01/30/2023 9:00 AM CDT): Lab Results Component Value Date HGBA1C 8.4 (H) 01/21/2023 HGBA1C 6.6 07/30/2022 HGBA1C 6.8 (H) 01/19/2022 Lab Results Component Value Date LDLCALC 111 01/21/2023 CREATININE 1.05 01/21/2023 Significantly worse at this time - increase metformin to 1250 mg every day 750 xr in am and 500 xr mg in pm Assessment & Plan (07/30/2022 9:02 AM CDT): Lab Results Component Value Date HGBA1C 6.6 07/30/2022 HGBA1C 6.8 (H) 01/19/2022 HGBA1C 7.5 (H) 03/27/2021 Lab Results Component Value Date LDLCALC 89 01/19/2022 CREATININE 0.95 01/19/2022 At goal at this time - continue continue metformin 750 mg xr q24h Assessment & Plan (01/29/2022 8:53 AM CDT): Lab Results Component Value Date HGBA1C 6.8 (H) 01/19/2022 HGBA1C 7.5 (H) 03/27/2021 HGBA1C 9.2 (H) 09/14/2020 Lab Results Component Value Date LDLCALC 89 01/19/2022 CREATININE 0.95 01/19/2022 At goal - continue current regimen Assessment & Plan (10/03/2021 10:36 AM CDT): Hospitalized for uncontrolled DM, syncope and infection The patient was counseled on a heart-healthy, diabetic-friendly diet, as well as life-style modification. a1c done in the hospital was 10 - need records from hospital Will increase metformin from 500 every day to 750 XL every day, can stop glipizide for now, continue checking sugars at home. Pt to let us know if he is still having elevated sugars once he stops the glipizde. If he continues to have elevated blood sugars will increase metformin, consider starting sglt2 or other oral medication -otherwise can go back on glipizide F/u in 3 months repeat a1c then Assessment & Plan (09/27/2021 4:29 PM CDT): Hospitalized for uncontrolled DM, syncope and infection The patient was counseled on a heart-healthy, diabetic-friendly diet, as well as life-style modification. Education provided on the diagnosis and risks of the disease. We will continue to monitor routine labs. Additionally, He was counseled on routine diabetic eye exams, foot exams, and other preventive care. Complete antibiotics Continue metformin and glipizide A1c ordered today Micro/Cr ur ratio ordered Information on diet printed and given F/u in 3 months CPAP (continuous positive airway pressure) kory marshall 03/17/2018 Family hx of colon cancer 03/17/2018 Overview (03/17/2018): Added automatically from request for surgery [id number] Hx of colonic polyps 03/17/2018 Overview (03/17/2018): Added automatically from request for surgery [id number] Coronary artery disease of [place] artery of [place] heart with stable angina pectoris 09/09/2017 Assessment & Plan (09/14/2024 7:36 AM CDT): Continue asparin Good bp control, glucose control cnosider bblocker Assessment & Plan (03/03/2024 7:44 AM FILM READER): Continue asparin Good bp control, glucose control cnosider bblocker Assessment & Plan (07/30/2022 10:05 AM CDT): Continue asparin Good bp control, glucose control cnosider bblocker Hyperlipidemia associated with type 2 diabetes alfredo hidalgo 03/11/2017 Assessment & Plan (09/14/2024 7:35 AM CDT): Lab Results Component Value Date CHOL 229 (H) 03/03/2024 CHOL 203 (H) 01/21/2023 CHOL 174 01/19/2022 Lab Results Component Value Date HDL 41 03/03/2024 HDL 40 01/21/2023 HDL 42 01/19/2022 Lab Results Component Value Date LDLCALC 141 (H) 03/03/2024 LDLCALC 111 01/21/2023 LDLCALC 89 01/19/2022 LDL 103 (H) 03/09/2019 LDL 117 (H) 09/15/2018 LDL 137 (H) 03/03/2018 LDLDIRECT 228 (H) 07/05/2012 Lab Results Component Value Date TRIG 261 (H) 03/03/2024 TRIG 258 (H) 01/21/2023 TRIG 216 (H) 01/19/2022 No results found for: POCCHDLR No results found for: POCNONHDL No results found for: POCCHLPL Recheck lipids now continu lipitor 20 mg every day Assessment & Plan (03/03/2024 7:43 AM FILM READER): Lab Results Component Value Date CHOL 203 (H) 01/21/2023 CHOL 174 01/19/2022 CHOL 177 03/27/2021 Lab Results Component Value Date HDL 40 01/21/2023 HDL 42 01/19/2022 HDL 40 03/27/2021 Lab Results Component Value Date LDLCALC 111 01/21/2023 LDLCALC 89 01/19/2022 LDLCALC 94 03/27/2021 LDL 103 (H) 03/09/2019 LDL 117 (H) 09/15/2018 LDL 137 (H) 03/03/2018 LDLDIRECT 228 (H) 07/05/2012 Lab Results Component Value Date TRIG 258 (H) 01/21/2023 TRIG 216 (H) 01/19/2022 TRIG 215 (H) 03/27/2021 No results found for: POCCHDLR No results found for: POCNONHDL No results found for: POCCHLPL Recheck lipids now continu lipitor 20 mg every day Assessment & Plan (08/28/2023 1:39 PM CDT): Lab Results Component Value Date CHOL 203 (H) 01/21/2023 CHOL 174 01/19/2022 CHOL 177 03/27/2021 Lab Results Component Value Date HDL 40 01/21/2023 HDL 42 01/19/2022 HDL 40 03/27/2021 Lab Results Component Value Date LDLCALC 111 01/21/2023 LDLCALC 89 01/19/2022 LDLCALC 94 03/27/2021 LDL 103 (H) 03/09/2019 LDL 117 (H) 09/15/2018 LDL 137 (H) 03/03/2018 LDLDIRECT 228 (H) 07/05/2012 Lab Results Component Value Date TRIG 258 (H) 01/21/2023 TRIG 216 (H) 01/19/2022 TRIG 215 (H) 03/27/2021 No results found for: POCCHDLR No results found for: POCNONHDL No results found for: POCCHLPL Recheck lipids now continu lipitor 20 mg every day Assessment & Plan (07/30/2022 9:06 AM CDT): Lab Results Component Value Date CHOL 174 01/19/2022 CHOL 177 03/27/2021 CHOL 206 (H) 09/14/2020 Lab Results Component Value Date HDL 42 01/19/2022 HDL 40 03/27/2021 HDL 45 09/14/2020 Lab Results Component Value Date LDLCALC 89 01/19/2022 LDLCALC 94 03/27/2021 LDLCALC 118 09/14/2020 LDL 103 (H) 03/09/2019 LDL 117 (H) 09/15/2018 LDL 137 (H) 03/03/2018 LDLDIRECT 228 (H) 07/05/2012 Lab Results Component Value Date TRIG 216 (H) 01/19/2022 TRIG 215 (H) 03/27/2021 TRIG 214 (H) 09/14/2020 No results found for: POCCHDLR No results found for: POCNONHDL No results found for: POCCHLPL Recheck lipids now continu lipitor 20 mg every day Assessment & Plan (01/29/2022 8:51 AM CDT): Lab Results Component Value Date CHOL 174 01/19/2022 CHOL 177 03/27/2021 CHOL 206 (H) 09/14/2020 Lab Results Component Value Date HDL 42 01/19/2022 HDL 40 03/27/2021 HDL 45 09/14/2020 Lab Results Component Value Date LDLCALC 89 01/19/2022 LDLCALC 94 03/27/2021 LDLCALC 118 09/14/2020 LDL 103 (H) 03/09/2019 LDL 117 (H) 09/15/2018 LDL 137 (H) 03/03/2018 LDLDIRECT 228 (H) 07/05/2012 Lab Results Component Value Date TRIG 216 (H) 01/19/2022 TRIG 215 (H) 03/27/2021 TRIG 214 (H) 09/14/2020 No results found for: POCCHDLR No results found for: POCNONHDL No results found for: POCCHLPL At goal LDL. Will cotninue statin and stop zetia Hypertension associated with diabetes 03/11/2017 Assessment & Plan (09/14/2024 7:35 AM CDT): BP Readings from Last 3 Encounters: 09/14/24 124/72 03/03/24 140/92 12/11/23 143/81 Vitals BP 124/72 (BP Location: Left arm, Patient Position: Sitting) Pulse 93 Resp 16 Ht 167.6 cm (5' 5.98) Wt 87.3 kg (192 lb 8 oz) SpO2 98% BMI 31.09 kg/m Lab Results Component Value Date POTASSIUM 4.2 03/03/2024 At goal at this time Continue hyzaar 50-12.5 every day Assessment & Plan (03/03/2024 7:37 AM FILM READER): BP Readings from Last 3 Encounters: 03/03/24 140/92 12/11/23 143/81 11/13/23 119/74 Vitals BP 140/92 (BP Location: Left arm, Patient Position: Sitting) Pulse 92 Resp 16 Ht 167.6 cm (5' 5.98) Wt 88.8 kg (195 lb 11.2 oz) SpO2 98% BMI 31.60 kg/m Lab Results Component Value Date POTASSIUM 4.0 01/21/2023 At goal at this time Continue hyzaar 50-12.5 every day Assessment & Plan (08/28/2023 1:39 PM CDT): BP Readings from Last 3 Encounters: 08/28/23 110/72 01/30/23 138/82 07/30/22 118/68 Vitals BP 110/72 (BP Location: Left arm, Patient Position: Sitting) Pulse 96 Resp 16 Ht 167.6 cm (5' 5.98) Wt 84.5 kg (186 lb 3.2 oz) SpO2 97% BMI 30.07 kg/m Lab Results Component Value Date POTASSIUM 4.0 01/21/2023 At goal at this time Continue hyzaar 50-12.5 every day Assessment & Plan (01/30/2023 9:04 AM CDT): BP Readings from Last 3 Encounters: 01/30/23 138/82 07/30/22 118/68 01/29/22 132/82 Vitals BP 138/82 Pulse 88 Resp 16 Wt 86.9 kg (191 lb 8 oz) SpO2 96% BMI 30.92 kg/m Lab Results Component Value Date POTASSIUM 4.0 01/21/2023 At goal at this time Continue hyzaar 50-12.5 every day Assessment & Plan (07/30/2022 9:06 AM CDT): BP Readings from Last 3 Encounters: 07/30/22 118/68 01/29/22 132/82 10/03/21 130/84 Vitals BP 118/68 (BP Location: Left arm, Patient Position: Sitting) Pulse 84 Resp 16 Ht 167.6 cm (5' 5.98) Wt 85.5 kg (188 lb 6.4 oz) SpO2 98% BMI 30.42 kg/m Lab Results Component Value Date POTASSIUM 4.4 01/19/2022 At goal at this time Continue hyzaar 50-12.5 every day Assessment & Plan (01/29/2022 8:52 AM CDT): HPI: Condition is at goal A&P: Discussed/ordered labs, encouraged healthy, low carbohydrate lifestyle and at least 150min/week of exercise, continue on current regimen Assessment & Plan (10/03/2021 10:34 AM CDT): HPI: Condition is at goal A&P: Discussed/ordered labs, encouraged healthy, low carbohydrate lifestyle and at least 150min/week of exercise, continue on current regimen Obstructive sleep apnea syndrome 03/26/2013 Overview (07/13/2016): Obstructive sleep apnea syndrome Resolved Problems Problem Noted Date Diagnosed Date Resolved Date Difficulty in swallowing 10/05/2019 Overview (10/05/2019): Added automatically from request for surgery [id number] Epigastric pain 04/26/2017 09/09/2017 Assessment & Plan (04/26/2017 11:51 AM FILM READER): Patient has a history of gastroesophageal reflux disorder. He had decreased his Pepcid to every other day. He was encouraged to continue once daily dosing. We will also obtain abdominal ultrasound to rule out underlying gallbladder etiology. Close follow-up here in 3 weeks. He may return sooner with absolutely any change in, worsening, or non improvement in condition. He was encouraged to follow a bland diet in the interim. Chest pain 04/26/2017 09/09/2017 Assessment & Plan (04/26/2017 11:52 AM FILM READER): Bedside EKG revealed normal sinus rhythm at 78 beats per minute and normal sinus rhythm at 80 beats per minute. No acute abnormalities noted. Patient remains very concerned with the possibility of underlying cardiac disease. We will proceed with stress echocardiogram. Further direction pending these results. Close follow-up in 3 weeks. He has been instructed to avoid strenuous activity until his results were reviewed. He was encouraged to present to the emergency room with recurrence of chest pain. Benign hypertension 08/22/2013 03/11/20 17 Overview (07/11/2016): BENIGN HYPERTENSION Multiple-type hyperlipidemia 08/22/2013 03/11/2017 Overview (07/11/2016): MIXED HYPERLIPIDEMIA Hypersomnia with sleep apnea 03/26/2013 03/11/2017 Overview (07/13/2016): Hypersomnia with sleep apnea Adiposity 03/26/2013 03/11/2017 Overview (07/13/2016): Obesity Sleep apnea 02/10/2013 03/11/2017 Overview (07/13/2016): Sleep apnea Immunizations Immunization Administration Dates Next Due Influenza, Quadrivalent, Hig h Dose, Preservative Free, Intrr 01/30/2023,01/29/2022,04/03/2021 Influenza, Quadrivalent, Spl it, Preservative Free, Intramuscular 03/31/2020,03/20/2019,01/15/2018 Influenza, Trivalent, High D ose, Split, Preservative Free, Intramuscular 03/03/2024 Influenza, Trivalent, IM (MDV) 01/21/2013 Influenza, Unspecified 01/21/2017 Pneumococcal Conjugate Pcv20 07/30/2022 Pneumococcal Polysaccharide PPV23 03/17/2018 Tdap 10/02/2007 ZOSTER LIVE 05/30/2015 ZOSTER Recombinant 03/20/2019,10/24/2018 Social History Tobacco Use Types Packs/Day Years Used Date Smoking Tobacco: Former Smokeless Tobacco: Former Quit: 10/14/2015 Tobacco Cessation:Counseling Given: Not Answered Comments:quit 30 years ago Alcohol Use Standard Drinks/Week Comments No 0 (1 standard drink = 0.6 oz pur e alcohol) AUDIT-C Answer Date Recorded Q1: How often do you have a drink containing alc ohol? Monthly or less 11/12/2023 Q2: How many drinks containi ng alcohol do you have on a typical day when you are drinking? 1 or 2 11/12/2023 Q3: How often do you have si x or more drinks on one occasion? Never 11/12/2023 PHQ-2 Answer Date Recorded PHQ-2 Total Score (If total score is 3 or more points, staff should administer the PHQ-9) 0 09/14/2024 Personal Safety Answer Date Recorded Have you ever been in or are you currently in a harmful physical or emotional relationship or is someone making you feel afraid or unsafe? Denies 09/16/2024 Sex and Gender Information Value Date Recorded Sex Assigned at Not on file Legal Sex Male 11:13 AM FILM READER Gender Identity Not on file Sexual Orientation Not on file Last Filed Vital Signs Vital Sign Reading Time Taken Comments Blood Pressure 134/77 09/16/2024 9:29 AM CDT Pulse 72 09/16/2024 9:29 AM CDT Temperature 36.3 C (97.3 F) 09/16/2024 9:29 AM CDT Respiratory Rate 16 09/16/2024 9:29 AM CDT Oxygen Saturation 100% 09/16/2024 9:29 AM CDT Inhaled Oxygen Concentration - - Weight 87.1 kg (192 lb) 09/16/2024 7:29 AM CDT Height 167.6 cm (5' 6) 09/16/2024 7:29 AM CDT Body Mass Index 30.99 09/16/2024 7:29 AM CDT Plan of Treatment Not on file Procedures Procedure Name Priority Date/Time Associated Diagnosis Comments SURGICAL PATHOLOGY STAT 09/16/2024 2:09 PM CDT Erosive esophagitis BOUGIE DILATION 09/16/2024 8:33 AM CDT Erosive esophagitis ESOPHAGOGASTRODUODENOSCOPY BIOPSY 09/16/2024 8:33 AM CDT Erosive esophagitis POCT GLUCOSE DEVICE Routine 09/16/2024 7:44 AM CDT EGD 09/16/2024 7:20 AM CDT POCT HEMOGLOBIN A1C Routine 09/14/2024 7:38 AM CDT Type 2 diabetes mellitus with hyperglycemia, without long-term current use of insulin (HCC) EGFR Routine 03/03/2024 8:00 AM FILM READER Type 2 diabetes mellitus with hyperglycemia, unspecified whether correction insulin use (HCC) LIPID PANEL Routine 03/03/2024 8:00 AM FILM READER Mixed hyperlipidemia ALBUMIN CREATININE RATIO, URINE Routine 03/03/2024 8:00 AM FILM READER Type 2 diabetes mellitus with hyperglycemia, unspecified whether long term care administrator insulin use (HCC) PSA SCREEN Routine 03/03/2024 8:00 AM FILM READER Prostate cancer screening COLONOSCOPY 11/13/2023 8:01 AM CDT DIABETIC EYE EXAM Routine 03/12/2023 ABDOMINAL AORTIC ANEURYSM SCREENING Schedule Routine, Read Routine (OP Routine) 08/30/2022 8:02 AM CDT Screening for AAA (aortic abdominal aneurysm) HEPATITIS C AB W/REFL TO HCV RNA, QN, PCR (REFL) Routine 02/14/2017 7:21 AM FILM READER Routine medical exam from Last 3 Months or Most Recently Relevant to Health Maintenance Results * Surgical pathology (09/16/2024 2:09 PM CDT) Tissue (Gastric/Stomach biopsy) 09/16/2024 8:55 AM CDT Tissue specimen (specimen) (Esophageal biopsy) 09/16/2024 8:55 AM CDT Narrative PATHOLOGY [facility] ([facility]) - 09/17/2024 10:40 AM CDT EPIC results best viewed via link to PDF [facility] Department of Pathology [address] [place] [id number] Note to Patients: This report may contain a detailed description of human tissue sent by a health care provider to the laboratory for pathologic evaluation. The content of this report is essential for diagnosis and may provide important critical findings. This information may be unfamiliar to patients to review without a medical professional present. It is advised that the patient review this report in the presence of a health care provider who can answer questions and explain the details. Final Report Patient Name: DANA HART Address: [address] [place], [place] [address] [id number] Gender: M : 1955 (Age: 69) Service: Gastro Location: [facility] Hospital #: [id number] Patient Type: [facility] Taken: 09/16/2024 Received: 09/16/2024 Accessioned: 09/16/2024 Reported: 09/17/2024 Physician(s):Dr. Shanna Funes M.D. Diagnosis: A. Gastric polyp, biopsy: - Fundic gland polyp. B. Esophagus, biopsy: - Fragments of benign squamous epithelium. Elias Woodson M.D. Report Electronically Reviewed and Signed Out By Elias Woodson M.D. 09/17/2024 10:40:21 Specimen(s) Received: A: Gastric polyp biopsy B: Esophageal Biopsy Microscopic Description: A. Sections show a fundic gland polyp. There is no evidence of intestinal metaplasia or dysplasia. B. Sections show fragments of benign squamous epithelium. No significant inflammatory infiltrate is seen. No fungal elements or viral cytopathic effect is seen. There is no evidence of dysplasia. No glandular mucosa is present. Clinical History: Erosive esophagitis. EGD. Gross Description: The specimen is submitted in two formalin containers labeled DANA HART. A. The first container is labeled gastric polyp. It is one abrams tissue fragment measuring 2 mm. All in A. B. The second container is labeled esophageal biopsy. It is 4 fragments of abrams tissue measuring 1 mm. All in B. T.A. Ben Castillo., P.A./[address] M.D. REPORT IMAGES AND SCANNED DOCUMENTS, IF INCLUDED, ONLY VIEWABLE IN PDF VERSION OF REPORT The performance characteristics of some immunohistochemical stains, fluorescence in-situ hybridization tests and immunophenotyping by flow cytometry cited in this report (if any) were determined by the Surgical Pathology Department at [facility] as part of an ongoing research quality assurance specialist program and in compliance with federally mandated regulations drawn from the Clinical Laboratory Improvement Act of 1988 (CLIA '88). Some of these tests rely on the use of analyte specific reagents and are subject to specific labeling requirements by the US Food and Drug Administration. Such diagnostic tests may only be performed in a facility that is certified by the Department of Health and Human Services as a high complexity laboratory under CLIA '88. The FDA has determined that such clearance or approval is not necessary. This test is used for clinical purposes. It should not be regarded as investigational or for research. Nevertheless, federal rules concerning the medical use of analyte specific reagents require that the following disclaimer be attached to the report: This test was developed and its performance characteristics determined by the Surgical Pathology Department [facility]. It has not been cleared or approved by the U. S. Food and Drug Administration. Note for decalcified specimens: This assay has not been validated on decalcified tissues. Results should be interpreted with caution given the possibility of false negativity on decalcified specimens Shanna Funes MD LAB PATHOLOGY ORDERABLES F inal Result Performing Organization Address [facility]/ZIP Co de Phone Number PATHOLOGY [facility] ([place]HELBY) [address] [place] [address] * POCT glucose (09/16/2024 7:44 AM CDT) Glucose, POC 140 70 - 199 mg/dL Blood 09/16/2024 7:44 AM CDT 09/16/2024 7:44 AM CDT Shanna Funes MD LAB POCT ORDERABLES - SRIDEVI CE Final Result Performing Organization Address [facility] Co de Phone Number CERNER [facility] ([place]) [address] [place] [address] [place] [address] * EGD (09/16/2024 7:20 AM CDT) Anatomical Region Laterality Modality Other Narrative Procedure Note Shanna Funes MD - 09/16/2024 7:20 AM CDT [facility] Patient Name: Dana Hart Procedure Date: 09/16/2024 7:20 AM Date of : 1955 Admit Type: Outpatient Age: 69 Gender: Male Attending MD: Shanna Funes M.D. Room: [facility] ENDOSCOPY ROOM 1 Note Status: Finalized Patient Profile: This is a 69 year old male. h/o erosiveesophagitis. now c/o intermittent dysphagia. heartburn isbetter. Procedure: Upper GI endoscopy Indications: Dysphagia, Suspected esophageal reflux Referring MD: Bonifacio Jack M.D. Providers: Shanna Funes M.D. Impression: - Gastric polyps with benign appearance.Biopsied. - Reflux esophagitis. - Normal esophagus. Biopsied. Dilated. Recommendation: - Await pathology results. - Use Prilosec (omeprazole) 20 mg PO daily or every other day in the morning. - Continue Famotitidine 40 mg daily at night. Medicines: Monitored Anesthesia Care Complications: No immediate complications. Estimated Blood Loss: Estimated blood loss: none. Procedure: Pre-Anesthesia Assessment: - Prior to the procedure, a History and Physicalwas performed, and patient medications and allergieswere reviewed. The patient's tolerance of previous anesthesia was also reviewed. The risks andbenefits of the procedure and the sedation options and risks were discussed with the patient. All questions were answered, and informed consent was obtained. Prior Anticoagulants: The patient has taken noanticoagulant or antiplatelet agents. ASA Grade Assessment: Per anesthesia note and evaluation. After reviewing the risks and benefits, the patient was deemed in satisfactory condition to undergo the procedure. The benefits, risks, and alternatives to theprocedure and sedation were discussed and informed consentwas obtained. The scope was passed under direct vision. The Endoscope GIF-H190 [id number] was introduced through the mouth, and advanced to the second partof duodenum. The upper GI endoscopy was accomplished without difficulty. The patient tolerated the procedure well. Findings: The duodenum was normal. Few gastric polyps with benign appearacenoted in the gastric fundus. Biopsied. Retroflexion in the stomach and the gastric cradia were normal. The Z-line was irregular and was found 40 cm from the incisors suggesting reflux esophagitis. No erosions.. The examined esophagus was normal. Biopsies were taken with a cold forceps for histology. The scope was withdrawn. Dilation wasperformed with a Colmenares dilator with no resistance at 56 Fr. Electronically signed by Shanna Funes M.D. Shanna Funes M.D. 09/16/2024 9:07:56 AM Number of Addenda: 0 Note Initiated On: 09/16/2024 7:20 AM Procedure Code(s): --- Professional --- 45407, Esophagogastroduodenoscopy, flexible, transoral; with biopsy, single or multiple 60703, Dilation of esophagus, by unguided sound or bougie, single or multiple passes Diagnosis Code(s): --- Professional --- K22.89, Other specified disease of esophagus R13.10, Dysphagia, unspecified CPT copyright 2020 [place] [employer]. All rights reserved. The codes documented in this report are preliminary and upon freelance art director reviewmay be revised to meet current compliance requirements. Recognized by the [place] [employer] for promoting quality in endoscopy us Shanna Funes MD ENDOSCOPY PROCEDURES Final Result * (ABNORMAL) POCT hemoglobin A1c (09/14/2024 7:38 AM CDT) Hemoglobin A1C, POC 7.2(A) 4.0 - 5.6 % Capillary blood 09/14/2024 7 :38 AM CDT us Bonifacio Jack MD POINT OF CARE TEST ORDERABLES Fi nal Result * eGFR (03/03/2024 8:00 AM FILM READER) eGFR 82 >=60 mL/min/1. 73 m2 Comment: Interpretive Data Reference Interval Normal >/= 90 mL/min/1.73m2 Mildly decreased* 60 - 89 mL/min/1.73m2 Mildly to moderately decreased 45 - 59 mL/min/1.73m2 Moderately to severely decreased 30 - 44 mL/min/1.73m2 Severely decreased 15 - 29 mL/min/1.73m2 Kidney Failure < 15 mL/min/1.73m2 *Relative to young adult level Estimated glomerular filtration rate is determined by the 2020 CKD-EPI equation recommended by the National Kidney Foundation (A Unifying Approach to GFR Estimation: Recommendations of the NKF-ASK Task Force on Reassessing the Inclusion of Race in Diagnosing Kidney Disease, JASN 2020). The CKD-EPI equation should not be used for patients with unstable renal function and has not been validated in children and those over 70. Current interpretive data was last reviewed 2021. Blood 03/03/2024 8:00 AM FILM READER 03/03/2024 11:37 AM FILM READER us Bonifacio Jack MD LAB BLOOD ORDERABLES Final Resul t [facility] ([place]) [address] [facility] [place] [address] * PSA screen (03/03/2024 8:00 AM FILM READER) PSA-Total 2.91 <=5.40 ng/mL Comment: Interpretive Data AGE SEX REFERENCE INTERVAL 0 minutes-150 years Female None 0 minutes-49 years Male None 50-59 years Male 0-3.90 60-69 years Male 0-5.40 70-79 years Male 0-6.20 80-150 years Male 0-6.20 The Janine PSA Total assay procedure was used. Results from different manufacturers or methods may not be comparable. Serial testing should be performed using the same method. Current interpretive data last revised 21. Blood 03/03/2024 8:00 AM FILM READER 03/03/2024 11:37 AM FILM READER Bonifacio Jack MD LAB BLOOD ORDERABLES Final Resul t Performing Organization Address [facility] Co de Phone Number [facility] ([place]) [address] [facility] [place] [address] * (ABNORMAL) Albumin Creatinine Ratio, Urine (03/03/2024 8:00 AM FILM READER) Pathologist [facility] Albumin Ur 59.7 mg/L Comment: Interpretive Data No reference range established. Current interpretive data was last revised 2018. Testing performed by: [address] [address] Creatinine Ur 73.9 mg/dL [facility] (FEMI) Comment: Interpretive Data No reference range established. Current interpretive data was last revised 2018. Testing performed by: [address] [address] Albumin Creatinine Ratio, Ur 81(H) 1 - 29 mg/g [facility] ([place]) Comment:Testing performed by : [address] [address] Urine 03/03/2024 8:00 AM FILM READER 03/03/2024 4:05 PM FILM READER Bonifacio Jack MD LAB URINE ORDERABLES Final Resul t Performing Organization Address City/[facility] Co de Phone Number [facility] ([place]) [address] [facility] [place] [address] * (ABNORMAL) Lipid panel (03/03/2024 8:00 AM FILM READER) Cholesterol 229(H) 30 - 199 mg/dL Comment: Interpretive Data Ages < or = 19 years Acceptable: <170 mg/dL Borderline high: 170-199 mg/dL High: >or= 200 mg/dL Ages > or = 20 years Desirable: <200 mg/dL Borderline high: 200-239 mg/dL High: >or= 240 mg/dL Literature References: 1. Expert Panel on Integrated Guidelines for Cardiovascular Health and Risk Reduction in Children and Adolescents. Pediatrics 2011;128:S213 2. NCEP Expert Panel. Circulation 2004;110:227 Current Interpretive Data was last revised on 2017. Triglycerides 261(H) <=149 mg/dL [facility] ([place]) Comment: Interpretive Data Ages < or = 9 years Acceptable: <75 mg/dL Borderline high: 75-99 mg/dL High: >or= 100 mg/dL Ages 10 to 20 years Acceptable: <90 mg/dL Borderline high: 90-129 mg/dL High: >or= 130 mg/dL Ages > or = 20 years Desirable: <150 mg/dL Borderline high: 150-199 mg/dL High: 200-499 mg/dL Very high: >or= 499 mg/dL Literature References: 1. Expert Panel on Integrated Guidelines for Cardiovascular Health and Risk Reduction in Children and Adolescents. Pediatrics 2011;128:S213 2. NCEP Expert Panel. Circulation 2004;110:227 Current Interpretive Data was last revised on 2017. HDL 41 >=40 mg/dL [facility] ([place]EM[place]) Comment: Interpretive Data Ages < or = 19 years Acceptable: >45 mg/dL Borderline low: 40-45 mg/dL Low: <40 mg/dL Ages > or = 20 years Desirable: >or= 60 mg/dL Low: <40 mg/dL Literature References: 1. Expert Panel on Integrated Guidelines for Cardiovascular Health and Risk Reduction in Children and Adolescents. Pediatrics 2011;128:S213 2. NCEP Expert Panel. Circulation 2004;110:227 Current Interpretive Data was last revised on 2017. LDL, calculated 141(H) <=129 mg/dL [facility] ([place]EMI) Comment: Interpretive Data Ages < or = 19 years Acceptable: <110 mg/dL Borderline high: 110-129 mg/dL High: >or= 130 mg/dL Ages > or = 20 years Optimal: <100 mg/dL Near optimal: 100-129 mg/dL Borderline high: 130-159 mg/dL High: >160 mg/dL Calculated using the Raji LDL-C estimating equation. This equation was implemented on 2023. Prior to this date LDL-C was estimated using the Friedewald equation. Literature References: 1. Expert Panel on Integrated Guidelines for Cardiovascular Health and Risk Reduction in Children and Adolescents. Pediatrics 2011;128:S213 2. NCEP Expert Panel. Circulation 2004;110:227 3. Raji Recio et al. GOPAL Cardiol. 2020 August 06;5(5):540-548. doi: 10.1001/jamacardio.2020.0013 Current Interpretive Data was last revised on 2023. Non-HDL Cholesterol 188 mg/dL GREG GARRETT) Comment: Interpretive Data Ages < or = 19 years Acceptable: <120 mg/dL Borderline high: 120-144 mg/dL High: >145 mg/dL Ages > or = 20 years When triglycerides are >200 mg/dL, Non-HDL cholesterol is a secondary target of therapy with treatment goals that are 30 mg/dL greater than the LDL cholesterol target. Literature References: 1. Expert Panel on Integrated Guidelines for Cardiovascular Health and Risk Reduction in Children and Adolescents. Pediatrics 2011;128:S213 2. NCEP Expert Panel. Circulation 2004;110:227 Current Interpretive Data was last revised on 2017. Chol/HDL ratio 6 [facility] ([place]) Blood 03/03/2024 8:00 AM FILM READER 03/03/2024 11:37 AM FILM READER us Bonifacio Jack MD LAB BLOOD ORDERABLES Final Resul t [facility] ([place]) 1 [facility] [place] [address] * Colonoscopy (11/13/2023 8:01 AM CDT) Anatomical Region Laterality Modality Other Narrative Procedure Note Shanna Funes MD - 11/13/2023 8:01 AM CDT [facility] Patient Name: Dana Hart Procedure Date: 11/13/2023 8:01 AM Date of : 1955 Admit Type: Outpatient Age: 68 Gender: Male Attending MD: Shanna Funes M.D. Room: [facility] ENDOSCOPY ROOM 1 Note Status: Finalized Patient Profile: This is a 68 year old male. Brother had coloncancer Procedure: Colonoscopy Indications: Screening in patient at increased risk: Familyhistory of 1st-degree relative with colorectal cancer, Last colonoscopy: April 2018 Referring MD: Bonifacio Jack M.D. Providers: Shanna Funes M.D. Impression: - One 2 mm polyp in the ascending colon, removedwith a cold biopsy forceps. Resected and retrieved. - Five 5 to 10 mm polyps in the descending colon, removed with a cold snare. Resected andretrieved. - Internal and external hemorrhoids. Recommendation: - Await pathology results. - Repeat colonoscopy in 3 years for surveillance. Medicines: Monitored Anesthesia Care Complications: No immediate complications. Estimated Blood Loss: Estimated blood loss: none. Procedure: Pre-Anesthesia Assessment: - Prior to the procedure, a History and Physicalwas performed, and patient medications and allergieswere reviewed. The patient's tolerance of previous anesthesia was also reviewed. The risks andbenefits of the procedure and the sedation options and risks were discussed with the patient. All questions were answered, and informed consent was obtained. Prior Anticoagulants: The patient has taken noanticoagulant or antiplatelet agents. ASA Grade Assessment: III -A patient with severe systemic disease. Afterreviewing the risks and benefits, the patient was deemed in satisfactory condition to undergo the procedure. The benefits, risks and alternatives of theprocedure and sedation were discussed and informed consentwas obtained. All questions were answered. Please referto the signed informed consent document in the medical record. The bowel preparation used was Miralax via split dose instruction. The bowel preparation usedwas bisacodyl tablets via split dose instruction. The scope was passed under direct vision. The Pediatric Colonoscope [id number]-H190L [id number] was introducedthrough the anus and advanced to the the cecum, identifiedby appendiceal orifice and ileocecal valve. Thequality of the bowel preparation was good. Bowel prep was administered using a split dose. Findings: Medium-sized external hemorrhoids noted on rectal examination. The cecum was normal. A 2 mm polyp was found in the ascending colon. The polyp was sessile. The polyp was removed with a cold biopsy forceps. Resection and retrieval were complete. Five sessile polyps were found in the descending colon. The polypswere 5 to 10 mm in size. These polyps were removed with a cold snare. Resection and retrieval were complete. The smallest polyp was removed with a cold forceps. The rectum, sigmoid colon and transverse colon appeared normal. Internal hemorrhoids were found during retroflexion. The hemorrhoids were medium-sized. Electronically signed by Shanna Funes M.D. Shanna Funes M.D. 11/13/2023 10:24:32 AM Number of Addenda: 0 Note Initiated On: 11/13/2023 8:01 AM Procedure Code(s): --- Professional --- 34070, Colonoscopy, flexible; with removal of tumor(s), polyp(s), or other lesion(s) by snare technique 22536, 59, Colonoscopy, flexible; with biopsy, single or multiple Diagnosis Code(s): --- Professional --- Z80.0, Family history of malignant neoplasm of digestive organs D12.2, Benign neoplasm of ascending colon D12.4, Benign neoplasm of descending colon K64.8, Other hemorrhoids CPT copyright 2020 [place] [employer]. All rights reserved. The codes documented in this report are preliminary and upon freelance art director reviewmay be revised to meet current compliance requirements. Recognized by the [place] [employer]intestinal [employer] for promoting quality in endoscopy Shanna Funes MD ENDOSCOPY PROCEDURES Final Result * Diabetic Eye Exam (03/12/2023) Generic External Data Provider HEALTH MAINTENANC E Final Result * US Abdominal Aortic Aneurysm Screening (08/30/2022 8:02 AM CDT) Anatomical Region Laterality Modality Abdomen Ultrasound 08/30/2022 9:55 AM CDT Narrative 08/30/2022 9:57 AM CDT EXAM DESCRIPTION: US ABDOMINAL AORTIC ANEURYSM SCREENING REASON FOR STUDY: Abdominal aortic aneurysm screening. TECHNIQUE: Grayscale images acquired of the aorta and stored on PACS. Selected color Doppler and spectral images recorded. COMPARISON: None FINDINGS: AORTIC CALIBER MAXIMAL PROXIMAL: 2.6 x 2.7 cm. MID: 2.1 x 2.1 cm. DISTAL: 2.9 x 2.9 cm. ILIAC DIAMETER RIGHT: 1.2 cm. LEFT: 1.1 cm. OTHER: No other significant finding. IMPRESSION: 1. Abdominal aortic ectasia measuring 2.9 cm. Recommend follow-up ultrasound in 10 years. REFERENCE: Please see below follow up recommendations for abdominal aortic aneurysm surveillance per Society for Vascular Surgery Guidelines: < 2.5 cm No follow up necessary 2.52.9 cm Recommended ultrasound follow up every 10 years 3.0-3.9 cm Recommended ultrasound follow up every 3 years 4.0-4.9 cm Recommended ultrasound follow up every 12 months, vascular surgery consult 5.0-5.4 cm Recommended ultrasound follow up every 6 months, vascular surgery consult >= 5.5 cm Referral to vascular surgeon Based upon Society for Vascular Surgery Guidelines: J Vasc Surgery 2009 Oct 50: s2s49; updated Apr 2017 J Vasc Surgery 67:277 THIS IS AN ELECTRONICALLY VERIFIED FINAL REPORT 08/30/2022 9:57 AM - Electronically signed by Porfirio Chicas M.D. AG: DEVIN Report ID: [id number] Reading Location: [id number] Procedure Note Porfirio Chicas MD - 08/30/2022 EXAM DESCRIPTION: US ABDOMINAL AORTIC ANEURYSM SCREENING REASON FOR STUDY: Abdominal aortic aneurysm screening. TECHNIQUE: Grayscale images acquired of the aorta and stored on PACS.Selected color Doppler and spectral images recorded. COMPARISON: None FINDINGS: AORTIC CALIBER MAXIMAL PROXIMAL: 2.6 x 2.7 cm. MID: 2.1 x 2.1 cm. DISTAL: 2.9 x 2.9 cm. ILIAC DIAMETER RIGHT: 1.2 cm. LEFT: 1.1 cm. OTHER: No other significant finding. IMPRESSION: 1. Abdominal aortic ectasia measuring 2.9 cm. Recommend follow-up ultrasound in 10 years. REFERENCE: Please see below follow up recommendations for abdominal aortic aneurysm surveillance per Society for Vascular Surgery Guidelines: < 2.5 cm No follow up necessary 2.52.9 cm Recommended ultrasound follow up every 10 years 3.0-3.9 cm Recommended ultrasound follow up every 3 years 4.0-4.9 cm Recommended ultrasound follow up every 12 months, vascularsurgery consult 5.0-5.4 cm Recommended ultrasound follow up every 6 months, vascularsurgery consult >= 5.5 cm Referral to vascular surgeon Based upon Society for Vascular Surgery Guidelines: J Vasc Surgery 2009Oct 50: s2s49; updated Apr 2017 J Vasc Surgery 67:277 THIS IS AN ELECTRONICALLY VERIFIED FINAL REPORT 08/30/2022 9:57 AM - Electronically signed by Porfirio Chicas M.D. AG: DEVIN Report ID: [id number] Reading Location: [id number] Bonifacio Jack MD IMG US PROCEDURES Final Result * HEPATITIS C AB W/REFL TO HCV RNA, QN, PCR (REFL) (02/14/2017 7:21 AM FILM READER) Hep C Ab NON-REACTI VE NON-REACTI VE [facility] SIGNAL TO CUT-OFF 0.01 <1.00 [facility] [place] Blood specimen (specimen) 02/14/2017 7:21 AM FILM READER 02/15/2017 4:46 AM FILM READER Narrative Resulting Agency Comment Performing Organization Information: Site ID: [id number] Name: [place] [facility] Address: [address] [place] [address] Director: Frankie Sorto D.O., MPH us Jose Ramon Lino MD LAB BLOOD ORDERABLES Final Res ult [facility] russ from Last 3 Months or Most Recently Relevant to Health Maintenance Insurance MEDICARE MEDICARE [employer] SENIOR SUPPLEMENT MEDICARE [facility] Advance Directives For more information, please contact: [phone] * Full Code (Latest Code Status on File) Date Activated Date Inactivated Comments 09/16/2024 7:22 AM 09/16/2024 1:54 PM * Full Code Date Activated Date Inactivated Comments 09/16/2024 7:22 AM 09/16/2024 7:22 AM * Full Code Date Activated Date Inactivated Comments 11/13/2023 8:08 AM 11/13/2023 2:55 PM * Full Code Date Activated Date Inactivated Comments 11/13/2023 8:08 AM 11/13/2023 8:08 AM * Full Code Date Activated Date Inactivated Comments 10/15/2019 9:10 AM 10/15/2019 3:23 PM Care Teams Endodontist Relationship Specialty Start Date End Date Bonifacio Jack MD PCP - General Family Medicine 10/03/21 Aftab Enciso MD Consulting Physician Cardiology 06/26/17 Phuong Flanagan NP [address] [place] [address] DR PATEL [address] [place] [address] Nurse Practitioner Family Medicine 10/06/23 [facility] [address] [facility] [address], [place] [address] Ophthalmology 01/30/10
--- OUTSIDE RECORDS SUMMARY | 2024-10-15 15:07 | XMS_ITS | Encounter Summary ---
Author Organization [facility] Healthcare Address [address] [place] [address] Care Team Providers Care Pulp Mill Supervisor Name Role Phone Aftab Enciso MD Unavailable [phone] Bonifacio Jack MD Primary Care Provider [phone] Phuong Flanagan NP Unavailable [phone] Encounter Details Date Type Department Care Team (Latest Contact Info) Description 09/28/2024 Results Follow-Up [facility] Gastroenterology at [address] [place] [address] Shanna Funes MD [address] [place] [address] [address] [place] [address] Surgical pathology Social History Tobacco Use Types Packs/Day Years Used Date Smoking Tobacco: Former Smokeless Tobacco: Former Quit: 10/14/2015 Comments:quit 30 years ago Alcohol Use Standard [...] on file Legal Sex Male 11:13 AM DIRECTOR CAREER SERVICES Gender Identity Not on file Sexual Orientation Not on file documented as of this encounter Plan of Treatment Not on file documented as of this encounter Visit Diagnoses Not on filedocumented in this encounter Care Teams Pulp Mill Supervisor Relationship Specialty Start Date End Date Bonifacio Jack MD PCP - General Family Medicine 10/03/21 Aftab Enciso MD Consulting Physician Cardiology 06/26/17 Phuong Flanagan NP 2 [facility] [address] PATEL [address] [place] [address] Nurse Practitioner Family Medicine 10/06/23 [facility] [place] [address] [address] [facility] [address] [address] Ophthalmology 01/30/10 documented as of this encounter
--- OUTSIDE RECORDS SUMMARY | 2024-10-15 15:07 | XMS_ITS | Clinical Summary ---
Author Organization [facility] Office Building A Address [address] [place] [address] Care Team Providers Care Managed Care Specialist Name Role Phone Aftab Enciso MD Unavailable [phone] Bonifacio Jack MD Primary Care Provider [phone] Phuong Flanagan NP Unavailable [phone] Allergies Active Allergy Reactions Criticality Noted Date [...] mouth daily 90 capsule 3 5 09/17/19 Active Active Problems Problem Noted Date Diagnosed [...] day Assessment & Plan (03/03/2024 7:44 AM INTERNATIONAL CONTROLLER): Lab Results Component Value Date HGBA1C 7.7 [...] counseling. 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 09/09/2017 Assessment & Plan (09/14/2024 7:36 AM CDT): Continue asparin Good bp control, glucose control cnosider bblocker Assessment & Plan (03/03/2024 7:44 AM INTERNATIONAL CONTROLLER): Continue asparin Good bp control, glucose control [...] day Assessment & Plan (03/03/2024 7:43 AM INTERNATIONAL CONTROLLER): Lab Results Component Value Date CHOL 203 [...] day Assessment & Plan (03/03/2024 7:37 AM INTERNATIONAL CONTROLLER): BP Readings from Last 3 Encounters: 03/03/24 [...] (10/05/2019): Added automatically from request for surgery [id number] Epigastric pain 04/26/2017 09/09/2017 Assessment & Plan (04/26/2017 11:51 AM INTERNATIONAL CONTROLLER): Patient has a history of gastroesophageal reflux [...] 09/09/2017 Assessment & Plan (04/26/2017 11:52 AM INTERNATIONAL CONTROLLER): Bedside EKG revealed normal sinus rhythm at [...] apnea 02/10/2013 03/11/2017 Overview (07/13/2016): Sleep apnea Encounters Date Type Department Care Team Description 5 Results Follow-Up [facility] Gastroenterology at [address] [place] [address] Shanna Funes MD Surgical pathology 5 8:41 AM CDT Anesthesia Event [address] [address] Cuca Reese MD 5 8:30 AM CDT - 5 9:00 AM CDT Surgery [address] [address] Shanna Funes MD ESOPHAGOGASTRODUODENOSCOPY BIOPSY 5 7:15 AM CDT - 5 9:49 AM CDT Hospital Encounter [address] [address] Shanna Funes MD Erosive esophagitis Discharge Disposition: Discharge to home or self care 5 9:30 AM CDT Office Visit [facility] Primary Care at [address] [place] [address] Bonifacio Jack MD Encounter for Medicare annual wellness exam (Primary Dx); Type 2 diabetes mellitus with hyperglycemia, without long-term current use of insulin (HCC); Class 1 obesity due to excess calories without serious comorbidity with body mass index (BMI) of 30.0 to 30.9 in adult; 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; Hyperlipidemia associated with type 2 diabetes mellitus (HCC); Hypertension associated with diabetes (HCC); Prostate cancer screening; Subclinical hypothyroidism 5 Telephone [facility] Primary Care at [address] [place] [address] Bonifacio Jack MD Appointment 5 Telephone [facility] Gastroenterology at [address] [place] [address] Neelam Peterson EGCharanjit Instructions from Last 3 Months Immunizations Immunization Administration Dates Next Due Influenza, Quadrivalent, Hig h Dose, Preservative Free, Intrr 01/30/2023,01/29/2022,04/03/2021 Influenza, Quadrivalent, Spl it, Preservative Free, Intramuscular 03/31/2020,03/20/2019,01/15/2018 Influenza, Trivalent, High D ose, Split, Preservative Free, Intramuscular 03/03/2024 Influenza, Trivalent, IM (MDV) 01/21/2013 Influenza, Unspecified 01/21/2017 Pneumococcal Conjugate Pcv20 07/30/2022 Pneumococcal Polysaccharide PPV23 03/17/2018 Tdap 10/02/2007 ZOSTER LIVE 05/30/2015 ZOSTER Recombinant 03/20/2019,10/24/2018 Surgical History Surgery Date Site/Laterality Comments OTHER SURGICAL HISTORY 04/08/2004 - 04/07/2005 normal stress OTHER SURGICAL HISTORY sinus surg age 25 VASECTOMY 04/08/1979 - 04/07/1980 Vasectomy CARDIAC CATHETERIZATION 06/06/2017 - 07/06/[address] [facility] COLONOSCOPY 04/08/2013 - 04/07/2014 Medical History Medical History Date Comments Anxiety disorder Anxiety Hypertension Hypertension Hx Other Medical Gastroesophagea l reflux disease Hyperlipidemia Hyperlipidemia Colon polyp Sleep apnea c pap at night Dysphagia GERD (gastroesophageal reflux disease) Diabetes mellitus (HCC) Type 2 diabetes mellitus (HCC) Family History Medical History Relation Name Comments Colon cancer Brother 2 Cancer -colon; Colon cancer Brother 3 Cancer, colon; Cause of : Cancer, colon Diabetes Brother 4 Diabetes mellit us; Hypertension Brother 5 Enrique Hypertension; Other Brother 6 anurism in stom ach; Cancer Brother 7 Prakash Diabetes Brother 7 Prakash Hypertension Brother 7 Prakash Diabetes Father Juan Diabetes mellit us; Hypertension Father Juan Hypertension; Stroke Father Juan Stroke; /Stroke ; Cause of : Stroke Other Mother unknown; Cause of : unknown Cancer Other 1 Family history of Cancer; Hypertension Other 2 Family history of Hypertension; Relation Name Status Comments Brother 1 (Age 70) Brother 2 Brother 3 Brother 4 Brother 5 Enrique Brother 6 Brother 7 Prakash Father Juan (Age 70) Mother (Age 63) Other 1 Other 2 Social History Tobacco Use Types Packs/Day Years [...] on file Legal Sex Male 11:13 AM INTERNATIONAL CONTROLLER Gender Identity Not on file Sexual Orientation Not on file Obstetrics History Last Filed Vital Signs Vital Sign Reading [...] 09/16/2024 7:29 AM CDT Plan of Treatment Health Maintenance Due Date Last Done Comments Hepatitis B Screening 1973 DTaP/Tdap/Td Vaccine (2 - Td or Tdap) 10/01/2017 10/02/2007 Foot Exam 09/29/2021 09/29/2020 Covid-19 Vaccine (4 - 2023-2 5 season) 2023 04/14/2021, 07/15/2020, 06/15/2020 Dilated Eye Exam 03/12/2024 03/12/2023, , 10/24/2021 Albumin Creatinine Ratio, Urine 03/03/2025 03/03/2024, 01/21/2023, 03/27/2021 Lipid Panel 03/03/2025 03/03/2024, 01/06, 01/19/2022, Additional history exists Prostate Cancer Screening-PSA 03/03/2025, 01/21/2023, 03/27/2021, Additional history exists eGFR 03/03/2025 03/03/2024, 01/06, 01/19/2022, Additional history exists Hemoglobin A1C 03/16/2025 09/14/2024, 02/07, 08/28/2023, Additional history exists Depression Screening 09/14/2025 09/14/2024, 03/03/2024, 08/28/2023, Additional history exists Fall Risk Assessment 09/14/2025 09/14/2024, 03/03/2024, 11/13/2023, Additional history exists Well Visit 65+ 09/14/2025 09/14/2024, 08/07, 07/30/2022, Additional history exists Colon Cancer Screening-Colonoscopy 11/12/2028 11/13/2023, 05/06/2018, 05/04/2013, Additional history exists Hepatitis C Screening Completed 02/14/2017, 017 Zoster Vaccine Completed 03/20/2019, 10/06, 05/30/2015 Pneumococcal vaccine 65+ Completed 07/30/2022, 03/08 Abdominal Aortic Aneurysm (A AA) Screen Completed 08/30/2022 Colon Cancer Screening-CT Colonography Discontinued 11/13/2023, 05/06/2018, 05/04/2013, Additional history exists Colon Cancer Screening-DNA Stool Discontinued 11/13/2023, 05/06/2018, 05/04/2013, Additional history exists Colon Cancer Screening-FIT Discontinued 11/12, 05/06/2018, 05/04/2013, Additional history exists Colon Cancer Screening-Sigmoidoscopy Discontinued 11/13/2023, 05/06/2018, 05/04/2013, Additional history exists Influenza Vaccine Completed 03/03/2024, , 01/29/2022, Additional history exists Procedures Procedure Name Priority Date/Time Associated Diagnosis [...] insulin (HCC) EGFR Routine 03/03/2024 8:00 AM INTERNATIONAL CONTROLLER Type 2 diabetes mellitus with hyperglycemia, unspecified whether long term acute care registered nurse insulin use (HCC) LIPID PANEL Routine 03/03/2024 8:00 AM INTERNATIONAL CONTROLLER Mixed hyperlipidemia ALBUMIN CREATININE RATIO, URINE Routine 03/03/2024 8:00 AM INTERNATIONAL CONTROLLER Type 2 diabetes mellitus with hyperglycemia, unspecified whether long term acute care registered nurse insulin use (HCC) PSA SCREEN Routine 03/03/2024 8:00 AM INTERNATIONAL CONTROLLER Prostate cancer screening COLONOSCOPY 11/13/2023 8:01 AM CDT DIABETIC EYE EXAM Routine 03/12/2023 ABDOMINAL AORTIC ANEURYSM SCREENING Schedule Routine, Read Routine (OP Routine) 08/30/2022 8:02 AM CDT Screening for AAA (aortic abdominal aneurysm) HEPATITIS C AB W/REFL TO HCV RNA, QN, PCR (REFL) Routine 02/14/2017 7:21 AM INTERNATIONAL CONTROLLER Routine medical exam from Last 3 Months or Most Recently Relevant to Health Maintenance Results * Surgical pathology (09/16/2024 2:09 PM CDT) Tissue (Gastric/Stomach biopsy) 09/16/2024 8:55 AM CDT Tissue specimen (specimen) (Esophageal biopsy) 09/16/2024 8:55 AM CDT Narrative PATHOLOGY [facility] - 09/17/2024 10:40 AM CDT EPIC results best viewed via link to PDF [facility] Department of Pathology [address] [place] [address] Note to Patients: This report may contain [...] Final Report Patient Name: DANA HART Address: [address] [place] [address] Gender: M : 1955 (Age: 69) Service: Gastro Location: [facility] Hospital #: [id number] Patient Type: [facility] Taken: 09/16/2024 Received: 09/16/2024 Accessioned: 09/16/2024 [...] measuring 1 mm. All in B. T.A. Cuca Castillo, P.A./[address] M.D. REPORT IMAGES AND SCANNED DOCUMENTS, IF INCLUDED, ONLY VIEWABLE IN PDF VERSION OF REPORT The performance characteristics of some immunohistochemical stains, fluorescence in-situ hybridization tests and immunophenotyping by flow cytometry cited in this report (if any) were determined by the Surgical Pathology Department at [facility] as part of an ongoing quality control engineering technician program and in compliance with federally mandated [...] characteristics determined by the Surgical Pathology Department [facility]. It has not been cleared or approved by the U. S. Food and Drug Administration. Note for decalcified specimens: This assay has not been validated on decalcified tissues. Results should be interpreted with caution given the possibility of false negativity on decalcified specimens Shanna Funes MD LAB PATHOLOGY ORDERABLES F inal Result Performing Organization Address City/[facility]/ZIP Co de Phone Number PATHOLOGY [facility] [address] [place] [address] * POCT glucose (09/16/2024 7:44 AM CDT) Glucose, POC 140 70 - 199 mg/dL Blood 09/16/2024 7:44 AM CDT 09/16/2024 7:44 AM CDT Shanna Funes MD LAB POCT ORDERABLES - SRIDEVI CE Final Result Performing Organization Address [facility]/ZIP Co de Phone Number [facility] [address] [place] [address] Department [place] [address] * EGD (09/16/2024 7:20 AM CDT) Anatomical Region Laterality Modality Other Narrative Procedure Note Shanna Funes MD - 09/16/2024 7:20 AM CDT [facility] Patient Name: Dana Hart Procedure Date: 09/16/2024 7:20 AM Date of : 1955 Admit Type: Outpatient Age: 69 Gender: Male Attending MD: Shanna Funes M.D. Room: [facility] ENDOSCOPY ROOM 1 Note Status: Finalized Patient [...] passed under direct vision. The Endoscope [id number]-[id number] was introduced through the mouth, and advanced [...] 7:20 AM Procedure Code(s): --- Professional --- 33114, Esophagogastroduodenoscopy, flexible, transoral; with biopsy, single or multiple 75302, Dilation of esophagus, by unguided sound or bougie, single or multiple passes Diagnosis Code(s): --- Professional --- K22.89, Other specified disease of esophagus R13.10, Dysphagia, unspecified CPT copyright 2020 [employer]. All rights reserved. The codes documented in this report are preliminary and upon digital sales planner reviewmay be revised to meet current compliance requirements. Recognized by the [place] for promoting quality in endoscopy us Shanna Funes MD ENDOSCOPY PROCEDURES Final Result * (ABNORMAL) POCT hemoglobin A1c (09/14/2024 7:38 AM CDT) Hemoglobin A1C, POC 7.2(A) 4.0 - 5.6 % Capillary blood 09/14/2024 7 :38 AM CDT us Bonifacio Jack MD POINT OF CARE TEST ORDERABLES Fi nal Result * eGFR (03/03/2024 8:00 AM INTERNATIONAL CONTROLLER) eGFR 82 >=60 mL/min/1. 73 m2 Comment: [...] last reviewed 2021. Blood 03/03/2024 8:00 AM INTERNATIONAL CONTROLLER 03/03/2024 11:37 AM INTERNATIONAL CONTROLLER us Bonifacio Jack MD LAB BLOOD ORDERABLES Final Resul t [facility] [place]) [address] [facility] Department [place] [address] * PSA screen (03/03/2024 8:00 AM INTERNATIONAL CONTROLLER) PSA-Total 2.91 <=5.40 ng/mL Comment: Interpretive Data [...] last revised 21. Blood 03/03/2024 8:00 AM INTERNATIONAL CONTROLLER 03/03/2024 11:37 AM INTERNATIONAL CONTROLLER Bonifacio Jack MD LAB BLOOD ORDERABLES Final Resul t Performing Organization Address City/[facility]/ZIP Co de Phone Number [facility] ([place] [address] [facility] [place] [address] * (ABNORMAL) Albumin Creatinine Ratio, Urine (03/03/2024 8:00 AM INTERNATIONAL CONTROLLER) Albumin Ur 59.7 mg/L Comment: Interpretive Data No reference range established. Current interpretive data was last revised 2018. Testing performed by: [facility], [address] [place] [address]., [id number] Creatinine Ur 73.9 mg/dL [facility] ([facility]) Comment: Interpretive Data No reference range established. Current interpretive data was last revised 2018. Testing performed by: [facility], [address] [place] [address]., [id number] Albumin Creatinine Ratio, Ur 81(H) 1 - 29 mg/g [facility] ([place]) Comment:Testing performed by : [facility], [address] [place] [address]., [address] Urine 03/03/2024 8:00 AM INTERNATIONAL CONTROLLER 03/03/2024 4:05 PM INTERNATIONAL CONTROLLER Bonifacio Jack MD LAB URINE ORDERABLES Final Resul t Performing Organization Address City/[facility]/ZIP Co de Phone Number [facility] ([place]) [address] [facility] [place] [address] * (ABNORMAL) Lipid panel (03/03/2024 8:00 AM INTERNATIONAL CONTROLLER) Cholesterol 229(H) 30 - 199 mg/dL Comment: [...] mg/dL High: >160 mg/dL Calculated using the Alergia LDL-C estimating equation. This equation was implemented on 2023. Prior to this date LDL-C was estimated using the Friedewald equation. Literature References: 1. Expert Panel on Integrated Guidelines for Cardiovascular Health and Risk Reduction in Children and Adolescents. Pediatrics 2011;128:S213 2. NCEP Expert Panel. Circulation 2004;110:227 3. Raji M et al. GOPAL Cardiol. 2020 August 06;5(5):540-548. doi: 10.1001/jamacardio.2020.0013 Current Interpretive Data was last revised on 2023. Non-HDL Cholesterol 188 mg/dL [facility] ([place]) Comment: Interpretive Data Ages < or = [...] on 2017. Chol/HDL ratio 6 [facility] ([place]) Blood 03/03/2024 8:00 AM INTERNATIONAL CONTROLLER 03/03/2024 11:37 AM INTERNATIONAL CONTROLLER us Bonifacio Jack MD LAB BLOOD ORDERABLES Final Resul t [facility] ([place]) 1 [facility] Department [place] [address] * Colonoscopy (11/13/2023 8:01 AM CDT) Anatomical Region Laterality Modality Other Narrative Procedure Note Shanna Funes MD - 11/13/2023 8:01 AM CDT [facility] Patient Name: Dana Hart Procedure Date: 11/13/2023 8:01 AM Date of : 1955 Admit Type: Outpatient Age: 68 Gender: Male Attending MD: Shanna Funes M.D. Room: [facility] ENDOSCOPY ROOM 1 Note Status: Finalized Patient [...] under direct vision. The Pediatric Colonoscope [id number]-[id number] was introducedthrough the anus and advanced to [...] 8:01 AM Procedure Code(s): --- Professional --- 00277, Colonoscopy, flexible; with removal of tumor(s), polyp(s), or other lesion(s) by snare technique 86353, 59, Colonoscopy, flexible; with biopsy, single or multiple Diagnosis Code(s): --- Professional --- Z80.0, Family history of malignant neoplasm of digestive organs D12.2, Benign neoplasm of ascending colon D12.4, Benign neoplasm of descending colon K64.8, Other hemorrhoids CPT copyright 2020 [employer]. All rights reserved. The codes documented in this report are preliminary and upon digital sales planner reviewmay be revised to meet current compliance requirements. Recognized by the [place] for promoting quality in endoscopy Shanna Funes MD ENDOSCOPY PROCEDURES Final Result * Diabetic Eye Exam (03/12/2023) Generic External Data Provider [facility] MAINTE[facility]NC E Final Result * US Abdominal [...] for Vascular Surgery Guidelines: J Vasc Surgery 2008 50: s2s49; updated Apr 2017 J Vasc Surgery 67:277 THIS IS AN ELECTRONICALLY VERIFIED FINAL REPORT 08/30/2022 9:57 AM - Electronically signed by Porfirio Chicas M.D. AG: DEVIN Report ID: [id number] Reading Location: [id number] Procedure Note Porfirio Chicas MD - 08/30/2022 [...] Porfirio Chicas M.D. AG: DEVIN Report ID: [id number] Reading Location: [id number] us Bonifacio Jack MD IMG US PROCEDURES Final Result * HEPATITIS C AB W/REFL TO HCV RNA, QN, PCR (REFL) (02/14/2017 7:21 AM INTERNATIONAL CONTROLLER) Hep C Ab NON-REACTI VE NON-REACTI VE [facility] SIGNAL TO CUT-OFF 0.01 <1.00 [facility] Blood specimen (specimen) 02/14/2017 7:21 AM INTERNATIONAL CONTROLLER 02/15/2017 4:46 AM INTERNATIONAL CONTROLLER Narrative Resulting Agency Comment Performing Organization Information: Site ID: [id number] Name: [facility] Address: [address] [place], [place] [address] [place] [address] Director: Frankie Sorto D.O., MPH Jose Ramon Lino MD LAB BLOOD ORDERABLES Final Res ult [facility] [place] from Last 3 Months or Most Recently Relevant to Health Maintenance Insurance MEDICARE MEDICARE [employer] SENIOR SUPPLEMENT MEDICARE [facility] Advance Directives For more information, please contact: [phone] * Full Code (Latest Code Status on [...] 9:10 AM 10/15/2019 3:23 PM Care Teams Managed Care Specialist Relationship Specialty Start Date End Date Bonifacio Jack MD PCP - General Family Medicine 10/03/21 Aftab Enciso MD Consulting Physician Cardiology 06/26/17 Phuong Flanagan NP [address] [place] [address] DR PATEL [address] [place] [address] Nurse Practitioner Family Medicine 10/06/23 [facility] [place] [address] [facility] [address] [address] Ophthalmology 01/30/10
--- OUTSIDE RECORDS SUMMARY | 2024-10-15 15:07 | XMS_ITS | Encounter Summary ---
Author Organization [facility] Healthcare Address [address] [place] [address] Care Team Providers Care Medical Coding Auditor Name Role Phone Aftab Enciso MD Unavailable [phone] Bonifacio Jack MD Primary Care Provider [phone] Phuong Flanagan NP Unavailable [phone] Encounter Details Date Type Department Care Team (Late st Contact Info) Description 11/15/2023 [facility] Post Discharge Follow up phone call [facility] [address] [place] [address] Aubree Ortiz, RN Social History Tobacco Use Types Packs/Day Years [...] points, staff should administer the PHQ-9) 0 08/28/2023 Personal Safety Answer Date Recorded Have you ever been in or are you currently in a harmful physical or emotional relationship or is someone making you feel afraid or unsafe? Denies 11/13/2023 Sex and Gender Information Value Date Recorded Sex Assigned at Not on file Legal Sex Male 11:13 AM DIRECT CARE WORKER Gender Identity Not on file Sexual Orientation Not on file documented as of this encounter Plan of Treatment Not on file documented as of this encounter Visit Diagnoses Not on filedocumented in this encounter Care Teams Medical Coding Auditor Relationship Specialty Start Date End Date Bonifacio Jack MD PCP - General Family Medicine 10/03/21 Aftab Enciso MD Consulting Physician Cardiology 06/26/17 Phuong Flanagan NP [address] [place] [address] DR PATEL [address] [place] [address] Nurse Practitioner Family Medicine 10/06/23 [facility] [address] [facility] [address] [address] Ophthalmology 01/30/10 documented as of this encounter
[2024-10-15 15:21] VITALS: BP 155/99; PULSE 96; RESP 18; TEMP 36.4; O2SAT 99
--- OUTSIDE RECORDS SUMMARY | 2024-10-15 15:37 | XMS_ITS | Encounter Summary ---
Author Organization [facility] Healthcare Address [address] [place] [address] Care Team Providers Care Ironing Machine Operator Name Role Phone Aftab Enciso MD Unavailable [phone] Bonifacio Jack MD Primary Care Provider [phone] Phuong Flanagan NP Unavailable [phone] Encounter Details Date Type Department Care Team (Late st Contact Info) Description 11/15/2023 [facility] Post Discharge Follow up phone call [facility] [address] [place] [address] Aubree Ortiz, RN Social History Tobacco Use [...] on file Legal 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 Gender Identity Not on file Sexual Orientation Not on file documented as of this encounter Plan of Treatment Not on file documented as of this encounter Visit Diagnoses Not on filedocumented in this encounter Care Teams Ironing Machine Operator Relationship Specialty Start Date End Date Bonifacio Jack MD PCP - General Family Medicine 10/03/21 Aftab Enciso MD Consulting Physician Cardiology 06/26/17 Phuong Flanagan NP [address] [place] [address] DR PATEL [address] [place] [address] Nurse Practitioner Family Medicine 10/06/23 [facility] [address] [facility] [address] [address] Ophthalmology 01/30/10 documented as of this encounter
--- OUTSIDE RECORDS SUMMARY | 2024-10-15 15:37 | XMS_ITS | Referral Summary ---
Author Organization [facility] Medical Office Building A Address [address] [place] [address] Care Team Providers Care Outpatient Facility Physical Therapist Name Role Phone Aftab Enciso MD Unavailable [phone] Bonifacio Jack MD Primary Care Provider [phone] Phuong Flanagan NP Unavailable [phone] Encounters Date Type Department Care Team Description 5 Results Follow-Up [facility] G[facility]enterology at [place] [address] [facility] [address] [place] [phone] Shanna Funes MD Surgical pathology 5 8:41 AM CDT Anesthesia Event [address] [address] Cuca Reese MD 5 8:30 AM CDT - 5 9:00 AM CDT Surgery [address] [address] Shanna Funes MD ESOPHAGOGASTRODUODENOSCOPY BIOPSY 5 7:15 AM CDT - 5 9:49 AM CDT Hospital Encounter [address] [address] Shanna Funes MD Erosive esophagitis Discharge Disposition: Discharge to home or self care 5 Telephone [facility] at [place] [address] [facility] [address] [place] [phone] Bonifacio Jack MD Appointment 5 9:30 AM CDT Office Visit [facility] [place] [address] [facility] [address] [place] [address] Bonifacio Jack MD Encounter for Medicare annual wellness exam (Primary Dx); Type 2 diabetes mellitus with hyperglycemia, without long-term current use of insulin (HCC); Class 1 obesity due to excess calories without serious comorbidity with body mass index (BMI) of 30.0 to 30.9 in adult; Coronary artery disease of [place] artery of [place] heart with stable angina pectoris; Hyperlipidemia associated with type 2 diabetes mellitus (HCC); Hypertension associated with diabetes (HCC); Prostate cancer screening; Subclinical hypothyroidism 5 Telephone [facility] Gastroenterology at [address] [place] [address] Neelam Peterson EGD Instructions from [...] day Assessment & Plan (03/03/2024 7:44 AM SCHOOL PHOTOGRAPHER): Lab Results Component Value Date HGBA1C 7.7 [...] counseling. Assessment & Plan (03/03/2024 7:50 AM SCHOOL PHOTOGRAPHER): Wt Readings from Last 3 Encounters: 03/03/24 [...] (03/17/2018): Added automatically from request for surgery [id number] Hx of colonic polyps 03/17/2018 Overview (03/17/2018): Added automatically from request for surgery [id number] Coronary artery disease of n ative artery of eastern sh[place] heart with stable angina pectoris 09/09/2017 Assessment & Plan (09/14/2024 7:36 AM CDT): Continue asparin Good bp control, glucose control cnosider bblocker Assessment & Plan (03/03/2024 7:44 AM SCHOOL PHOTOGRAPHER): Continue asparin Good bp control, glucose control [...] day Assessment & Plan (03/03/2024 7:43 AM SCHOOL PHOTOGRAPHER): Lab Results Component Value Date CHOL 203 [...] day Assessment & Plan (03/03/2024 7:37 AM SCHOOL PHOTOGRAPHER): BP Readings from Last 3 Encounters: 03/03/24 [...] (10/05/2019): Added automatically from request for surgery [id number] Epigastric pain 04/26/2017 09/09/2017 Assessment & Plan (04/26/2017 11:51 AM SCHOOL PHOTOGRAPHER): Patient has a history of gastroesophageal reflux [...] 09/09/2017 Assessment & Plan (04/26/2017 11:52 AM SCHOOL PHOTOGRAPHER): Bedside EKG revealed normal sinus rhythm at [...] on file Legal Sex Male 11:13 AM SCHOOL PHOTOGRAPHER Gender Identity Not on file Sexual Orientation [...] insulin (HCC) EGFR Routine 03/03/2024 8:00 AM SCHOOL PHOTOGRAPHER Type 2 diabetes mellitus with hyperglycemia, unspecified whether longterm insulin use (HCC) LIPID PANEL Routine 03/03/2024 8:00 AM SCHOOL PHOTOGRAPHER Mixed hyperlipidemia ALBUMIN CREATININE RATIO, URINE Routine 03/03/2024 8:00 AM SCHOOL PHOTOGRAPHER Type 2 diabetes mellitus with hyperglycemia, unspecified whether intermission coordinator insulin use (HCC) PSA SCREEN Routine 03/03/2024 8:00 AM SCHOOL PHOTOGRAPHER Prostate cancer screening COLONOSCOPY 11/13/2023 8:01 AM CDT DIABETIC EYE EXAM Routine 03/12/2023 ABDOMINAL AORTIC ANEURYSM SCREENING Schedule Routine, Read Routine (OP Routine) 08/30/2022 8:02 AM CDT Screening for AAA (aortic abdominal aneurysm) HEPATITIS C AB W/REFL TO HCV RNA, QN, PCR (REFL) Routine 02/14/2017 7:21 AM SCHOOL PHOTOGRAPHER Routine medical exam from Last 3 Months or Most Recently Relevant to Health Maintenance Results * Surgical pathology (09/16/2024 2:09 PM CDT) Tissue (Gastric/Stomach biopsy) 09/16/2024 8:55 AM CDT Tissue specimen (specimen) (Esophageal biopsy) 09/16/2024 8:55 AM CDT Narrative PATHOLOGY [facility] ([facility]) - 09/17/2024 10:40 AM CDT EPIC results best viewed via link to PDF [facility] Department of Pathology [address] [place] [id number] Note to Patients: This report may contain [...] Final Report Patient Name: DANA HART Address: [address] [place], [place] [address] [id number] Gender: M : 1955 (Age: 69) Service: Gastro Location: [facility] Hospital #: [id number] Patient Type: [facility] Taken: 09/16/2024 Received: 09/16/2024 Accessioned: 09/16/2024 [...] by the Surgical Pathology Department at [facility] as part of an ongoing quality assurance supervisor program and in compliance with federally mandated [...] characteristics determined by the Surgical Pathology Department [facility]. It has not been cleared or approved by the U. S. Food and Drug Administration. Note for decalcified specimens: This assay has not been validated on decalcified tissues. Results should be interpreted with caution given the possibility of false negativity on decalcified specimens Shanna Funes MD LAB PATHOLOGY ORDERABLES F inal Result Performing Organization Address [facility]/ZIP Co de Phone Number PATHOLOGY [facility] ([facility]) [address] [place] [address] * POCT glucose (09/16/2024 7:44 AM CDT) Glucose, POC 140 70 - 199 mg/dL Blood 09/16/2024 7:44 AM CDT 09/16/2024 7:44 AM CDT Shanna Funes MD LAB POCT ORDERABLES - SRIDEVI CE Final Result Performing Organization Address [facility] Co de Phone Number CERNER [facility] ([place]) [address] [place] [address] Department [place] [address] * EGD (09/16/2024 7:20 AM CDT) Anatomical Region Laterality Modality Other Narrative Procedure Note Shanna Funes MD - 09/16/2024 7:[address] [facility] Patient Name: Dana Hart Procedure Date: 09/16/2024 7:20 AM Date of : 1955 Admit Type: Outpatient Age: 69 Gender: Male Attending MD: Shanna Funes M.D. Room: [facility] ENDOSCOPY RO[facility] 1 Note Status: Finalized Patient [...] passed under direct vision. The Endoscope GIF-H190 [id number] was introduced through the mouth, and advanced [...] 7:20 AM Procedure Code(s): --- Professional --- 47087, Esophagogastroduodenoscopy, flexible, transoral; with biopsy, single or multiple 79037, Dilation of esophagus, by unguided sound or bougie, single or multiple passes Diagnosis Code(s): --- Professional --- K22.89, Other specified disease of esophagus R13.10, Dysphagia, unspecified CPT copyright 2020 [employer]. All rights reserved. The codes documented in this report are preliminary and upon dry cleaning checker reviewmay be revised to meet current compliance requirements. Recognized by the [employer] for promoting quality in endoscopy us Shanna Funes MD ENDOSCOPY PROCEDURES Final Result * (ABNORMAL) POCT hemoglobin A1c (09/14/2024 7:38 AM CDT) Hemoglobin A1C, POC 7.2(A) 4.0 - 5.6 % Capillary blood 09/14/2024 7 :38 AM CDT us Bonifacio Jack MD POINT OF CARE TEST ORDERABLES Fi nal Result * eGFR (03/03/2024 8:00 AM SCHOOL PHOTOGRAPHER) eGFR 82 >=60 mL/min/1. 73 m2 Comment: [...] last reviewed 2021. Blood 03/03/2024 8:00 AM SCHOOL PHOTOGRAPHER 03/03/2024 11:37 AM SCHOOL PHOTOGRAPHER us Bonifacio Jack MD LAB BLOOD ORDERABLES Final Resul t [facility] ([place]) [address] [facility] Department [place] [address] * PSA screen (03/03/2024 8:00 AM SCHOOL PHOTOGRAPHER) PSA-Total 2.91 <=5.40 ng/mL Comment: Interpretive Data [...] last revised 21. Blood 03/03/2024 8:00 AM SCHOOL PHOTOGRAPHER 03/03/2024 11:37 AM SCHOOL PHOTOGRAPHER Bonifacio Jack MD LAB BLOOD ORDERABLES Final Resul t Performing Organization Address [facility] Co de Phone Number [facility] ([place]) 1 [facility] [place] [address] * (ABNORMAL) Albumin Creatinine Ratio, Urine (03/03/2024 8:00 AM SCHOOL PHOTOGRAPHER) Pathologist [facility] Albumin Ur 59.7 mg/L Comment: Interpretive Data No reference range established. Current interpretive data was last revised 2018. Testing performed by: [address] [address] Creatinine Ur 73.9 mg/dL [facility] ([facility]) Comment: Interpretive Data No reference range established. Current interpretive data was last revised 2018. Testing performed by: [address] [address] Albumin Creatinine Ratio, Ur 81(H) 1 - 29 mg/g [facility] ([facility]) Comment:Testing performed by : [address] [address] Urine 03/03/2024 8:00 AM SCHOOL PHOTOGRAPHER 03/03/2024 4:05 PM SCHOOL PHOTOGRAPHER Bonifacio Jack MD LAB URINE ORDERABLES Final Resul t Performing Organization Address City/[facility] Co de Phone Number [facility] ([facility]) 1 [facility] [place] [address] * (ABNORMAL) Lipid panel (03/03/2024 8:00 AM SCHOOL PHOTOGRAPHER) Cholesterol 229(H) 30 - 199 mg/dL Comment: [...] [facility] ([facility]) Blood 03/03/2024 8:00 AM SCHOOL PHOTOGRAPHER 03/03/2024 11:37 AM SCHOOL PHOTOGRAPHER us Bonifacio Jack MD LAB BLOOD ORDERABLES Final Resul t [facility] ([facility]) [address] [facility] Department [place] [address] * Colonoscopy (11/13/2023 8:01 AM CDT) Anatomical Region Laterality Modality Other Narrative Procedure Note Shanna Funes MD - 11/13/2023 8:01 AM CDT [facility] Patient Name: Dana Hart Procedure Date: 11/13/2023 8:01 AM Date of : 1955 Admit Type: Outpatient Age: 68 Gender: Male Attending MD: Shanna Funes M.D. Room: [facility] 1 Note Status: Finalized Patient [...] under direct vision. The Pediatric Colonoscope [id number]-H190L [id number] was introducedthrough the anus and advanced to [...] 8:01 AM Procedure Code(s): --- Professional --- 40484, Colonoscopy, flexible; with removal of tumor(s), polyp(s), or other lesion(s) by snare technique [address]77[address], 59, Colonoscopy, flexible; with biopsy, single or multiple Diagnosis Code(s): --- Professional --- Z80.0, Family history of malignant neoplasm of digestive organs D12.2, Benign neoplasm of ascending colon D12.4, Benign neoplasm of descending colon K64.8, Other hemorrhoids CPT copyright 2020 [employer]. All rights reserved. The codes documented in this report are preliminary and upon dry cleaning checker reviewmay be revised to meet current compliance requirements. Recognized by the [employer] for promoting quality [...] Porfirio Chicas M.D. AG: DEVIN Report ID: [id number] Reading Location: [id number] Procedure Note Porfirio Chicas MD - 08/30/2022 [...] Porfirio Chicas M.D. AG: DEVIN Report ID: [id number] Reading Location: [id number] us Bonifacio Jack MD IMG US PROCEDURES Final Result * HEPATITIS C AB W/REFL TO HCV RNA, QN, PCR (REFL) (02/14/2017 7:21 AM SCHOOL PHOTOGRAPHER) Hep C Ab NON-REACTI VE NON-REACTI VE [facility] [place] SIGNAL TO CUT-OFF 0.01 <1.00 [facility] [place] Blood specimen (specimen) 02/14/2017 7:21 AM SCHOOL PHOTOGRAPHER 02/15/2017 4:46 AM SCHOOL PHOTOGRAPHER Narrative Resulting Agency Comment Performing Organization Information: Site ID: [id number] Name: [place] [facility] Address: [address] [place] [address] Director: Frankie Sorto D.O., MPH us Jose Ramon Lino MD LAB BLOOD ORDERABLES Final Res ult [facility] from Last 3 Months or Most Recently Relevant to Health Maintenance Insurance MEDICARE MEDICARE [employer] SENIOR SUPPLEMENT MEDICARE [facility] Advance Directives For more information, please contact: [phone] * Full Code (Latest Code Status on [...] 9:10 AM 10/15/2019 3:23 PM Care Teams Outpatient Facility Physical Therapist Relationship Specialty Start Date End Date Bonifacio Jack MD PCP - General Family Medicine 10/03/21 Aftab Enciso MD Consulting Physician Cardiology 06/26/17 Phuong Flanagan NP [address] [place] [address] DR PATEL [address] [place] [id number] Nurse Practitioner Family Medicine 10/06/23 [facility] [address] [facility] [address], [place] [address] Ophthalmology 01/30/10
--- OUTSIDE RECORDS SUMMARY | 2024-10-15 15:37 | XMS_ITS | Clinical Summary ---
Author Organization [facility] A Address [address] [place] [address] Care Team Providers Care Shading Painter Name Role Phone Aftab Enciso MD Unavailable [phone] Bonifacio Jack MD Primary Care Provider [phone] Phuong Flanagan NP Unavailable [phone] Allergies Active Allergy Reactions Criticality Noted Date [...] day Assessment & Plan (03/03/2024 7:44 AM CURATOR OF EDUCATION): Lab Results Component Value Date HGBA1C 7.7 [...] counseling. 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 09/09/2017 Assessment & Plan (09/14/2024 7:36 AM CDT): Continue asparin Good bp control, glucose control cnosider bblocker Assessment & Plan (03/03/2024 7:44 AM CURATOR OF EDUCATION): Continue asparin Good bp control, glucose control [...] day Assessment & Plan (03/03/2024 7:43 AM CURATOR OF EDUCATION): Lab Results Component Value Date CHOL 203 [...] day Assessment & Plan (03/03/2024 7:37 AM CURATOR OF EDUCATION): BP Readings from Last 3 Encounters: 03/03/24 [...] (10/05/2019): Added automatically from request for surgery [id number] Epigastric pain 04/26/2017 09/09/2017 Assessment & Plan (04/26/2017 11:51 AM CURATOR OF EDUCATION): Patient has a history of gastroesophageal reflux [...] 09/09/2017 Assessment & Plan (04/26/2017 11:52 AM CURATOR OF EDUCATION): Bedside EKG revealed normal sinus rhythm at [...] Department Care Team Description 5 Results Follow-Up [facility] Gastroenterology at [address] [place] [address] Shanna Funes MD Surgical pathology 5 8:41 AM CDT Anesthesia Event [address] [address] Cuca Reese MD 5 8:30 AM CDT - 5 9:00 AM CDT Surgery [address] [address] Shanna Funes MD ESOPHAGOGASTRODUODENOSCOPY BIOPSY 5 7:15 AM CDT - 5 9:49 AM CDT Hospital Encounter [address] [address] Shanna Funes MD Erosive esophagitis Discharge Disposition: Discharge to home or self care 5 9:30 AM CDT Office Visit [facility] Primary Care at [address] [place] [address] Bonifacio Jack MD Encounter for Medicare annual wellness exam (Primary Dx); Type 2 diabetes mellitus with hyperglycemia, without long-term current use of insulin (HCC); Class 1 obesity due to excess calories without serious comorbidity with body mass index (BMI) of 30.0 to 30.9 in adult; 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; Hyperlipidemia associated with type 2 diabetes mellitus (HCC); Hypertension associated with diabetes (HCC); Prostate cancer screening; Subclinical hypothyroidism 5 Telephone [facility] Primary Care at [address] [place] [address] Bonifacio Jack MD Appointment 5 Telephone [facility] Gastroenterology at [address] [place] [address] Neelam Peterson EGCharanjit Instructions from [...] CARDIAC CATHETERIZATION 06/06/2017 - 07/06/[address] [facility]iso[facility] COLONOSCOPY 04/08/2013 - 04/07/2014 Medical History Medical [...] on file Legal Sex Male 11:13 AM CURATOR OF EDUCATION Gender Identity Not on file Sexual Orientation [...] insulin (HCC) EGFR Routine 03/03/2024 8:00 AM CURATOR OF EDUCATION Type 2 diabetes mellitus with hyperglycemia, unspecified whether ad terminal makeup operator insulin use (HCC) LIPID PANEL Routine 03/03/2024 8:00 AM CURATOR OF EDUCATION Mixed hyperlipidemia ALBUMIN CREATININE RATIO, URINE Routine 03/03/2024 8:00 AM CURATOR OF EDUCATION Type 2 diabetes mellitus with hyperglycemia, unspecified whether ad terminal makeup operator insulin use (HCC) PSA SCREEN Routine 03/03/2024 8:00 AM CURATOR OF EDUCATION Prostate cancer screening COLONOSCOPY 11/13/2023 8:01 AM CDT DIABETIC EYE EXAM Routine 03/12/2023 ABDOMINAL AORTIC ANEURYSM SCREENING Schedule Routine, Read Routine (OP Routine) 08/30/2022 8:02 AM CDT Screening for AAA (aortic abdominal aneurysm) HEPATITIS C AB W/REFL TO HCV RNA, QN, PCR (REFL) Routine 02/14/2017 7:21 AM CURATOR OF EDUCATION Routine medical exam from Last 3 Months or Most Recently Relevant to Health Maintenance Results * Surgical pathology (09/16/2024 2:09 PM CDT) Tissue (Gastric/Stomach biopsy) 09/16/2024 8:55 AM CDT Tissue specimen (specimen) (Esophageal biopsy) 09/16/2024 8:55 AM CDT Narrative PATHOLOGY [facility] ([place]) - 09/17/2024 10:40 AM CDT EPIC results best viewed via link to PDF [facility] Department of Pathology [address] [place] [address] Note to Patients: This report may contain [...] Final Report Patient Name: DANA HART Address: [address] [place] [address] Gender: M : 1955 (Age: 69) Service: Gastro Location: [facility] Hospital #: [id number] Patient Type: [facility] Taken: 09/16/2024 Received: 09/16/2024 Accessioned: 09/16/2024 Reported: [...] determined by the Surgical Pathology Department at [facility] as part of an ongoing air quality chemist program and in compliance with federally mandated [...] characteristics determined by the Surgical Pathology Department [facility]. It has not been cleared or approved by the U. S. Food and Drug Administration. Note for decalcified specimens: This assay has not been validated on decalcified tissues. Results should be interpreted with caution given the possibility of false negativity on decalcified specimens Shanna Funes MD LAB PATHOLOGY ORDERABLES F inal Result Performing Organization Address City/[facility]/ZIP Co de Phone Number PATHOLOGY [facility] ([place]) [address] [place] [address] * POCT glucose (09/16/2024 7:44 AM CDT) Glucose, POC 140 70 - 199 mg/dL Blood 09/16/2024 7:44 AM CDT 09/16/2024 7:44 AM CDT Shanna Funes MD LAB POCT ORDERABLES - SRIDEVI CE Final Result Performing Organization Address [facility]/ZIP Co de Phone Number [facility] ([place] [address] [place] [address] [place] [address] * EGD (09/16/2024 7:20 AM CDT) Anatomical Region Laterality Modality Other Narrative Procedure Note Shanna Funes MD - 09/16/2024 7:20 AM CDT [facility] Patient Name: Dana Hart Procedure Date: 09/16/2024 7:20 AM Date of : 1955 Admit Type: Outpatient Age: 69 Gender: Male Attending MD: Shanna Funes M.D. Room: [facility] ENDOSCOPY ROOM 1 Note Status: Finalized Patient [...] passed under direct vision. The Endoscope GIF-H190 [id number] was introduced through the mouth, and advanced [...] 7:20 AM Procedure Code(s): --- Professional --- 01684, Esophagogastroduodenoscopy, flexible, transoral; with biopsy, single or multiple 94477, Dilation of esophagus, by unguided sound or bougie, single or multiple passes Diagnosis Code(s): --- Professional --- K22.89, Other specified disease of esophagus R13.10, Dysphagia, unspecified CPT copyright 2020 [employer]. All rights reserved. The codes documented in this report are preliminary and upon mixologist reviewmay be revised to meet current compliance requirements. Recognized by the [employer] for promoting quality in endoscopy us Shanna Funes MD ENDOSCOPY PROCEDURES Final Result * (ABNORMAL) POCT hemoglobin A1c (09/14/2024 7:38 AM CDT) Hemoglobin A1C, POC 7.2(A) 4.0 - 5.6 % Capillary blood 09/14/2024 7 :38 AM CDT us Bonifacio Jack MD POINT OF CARE TEST ORDERABLES Fi nal Result * eGFR (03/03/2024 8:00 AM CURATOR OF EDUCATION) eGFR 82 >=60 mL/min/1. 73 m2 Comment: [...] last reviewed 2021. Blood 03/03/2024 8:00 AM CURATOR OF EDUCATION 03/03/2024 11:37 AM CURATOR OF EDUCATION us Bonifacio Jack MD LAB BLOOD ORDERABLES Final Resul t [facility] [place]) 6 [facility] Department [place] [address] * PSA screen (03/03/2024 8:00 AM CURATOR OF EDUCATION) PSA-Total 2.91 <=5.40 ng/mL Comment: Interpretive Data [...] last revised 21. Blood 03/03/2024 8:00 AM CURATOR OF EDUCATION 03/03/2024 11:37 AM CURATOR OF EDUCATION Bonifacio Jack MD LAB BLOOD ORDERABLES Final Resul t Performing Organization Address City/[facility]/ZIP Co de Phone Number [facility] 1 [facility] [place] [address] * (ABNORMAL) Albumin Creatinine Ratio, Urine (03/03/2024 8:00 AM CURATOR OF EDUCATION) Albumin Ur 59.7 mg/L Comment: Interpretive Data No reference range established. Current interpretive data was last revised 2018. Testing performed by: [facility], [address] [place] [address]., [id number] Creatinine Ur 73.9 mg/dL [facility] ([facility]) Comment: Interpretive Data No reference range established. Current interpretive data was last revised 2018. Testing performed by: [facility], [address] [place] [address]., [address] Albumin Creatinine Ratio, Ur 81(H) 1 - 29 mg/g [facility] ([place]) Comment:Testing performed by : [facility], [address] [place] [address]., [address] Urine 03/03/2024 8:00 AM CURATOR OF EDUCATION 03/03/2024 4:05 PM CURATOR OF EDUCATION Bonifacio Jack MD LAB URINE ORDERABLES Final Resul t Performing Organization Address City/[facility]/ZIP Co de Phone Number [facility] ([place]) 1 [facility] [place] [address] * (ABNORMAL) Lipid panel (03/03/2024 8:00 AM CURATOR OF EDUCATION) Cholesterol 229(H) 30 - 199 mg/dL Comment: [...] mg/dL High: >160 mg/dL Calculated using the [employer] LDL-C estimating equation. This equation was implemented [...] 2023. Non-HDL Cholesterol 188 mg/dL [facility] ([place]) Comment: Interpretive Data Ages < or = [...] on 2017. Chol/HDL ratio 6 [facility] ([place]) Blood 03/03/2024 8:00 AM CURATOR OF EDUCATION 03/03/2024 11:37 AM CURATOR OF EDUCATION us Bonifacio Jack MD LAB BLOOD ORDERABLES Final Resul t [facility] ([place]) 1 [facility] [place] [address] * Colonoscopy (11/13/2023 8:01 AM CDT) Anatomical Region Laterality Modality Other Narrative Procedure Note Shanna Funes MD - 11/13/2023 8:01 AM CDT [facility] Patient Name: Dana Hart Procedure Date: 11/13/2023 8:01 AM Date of : 1955 Admit Type: Outpatient Age: 68 Gender: Male Attending MD: Shanna Funes M.D. Room: [facility] ENDOSCOPY ROOM 1 Note Status: Finalized Patient [...] under direct vision. The Pediatric Colonoscope [id number] was introducedthrough the anus and advanced to [...] 8:01 AM Procedure Code(s): --- Professional --- 69803, Colonoscopy, flexible; with removal of tumor(s), polyp(s), or other lesion(s) by snare technique [address], 59, Colonoscopy, flexible; with biopsy, single or multiple Diagnosis Code(s): --- Professional --- Z80.0, Family history of malignant neoplasm of digestive organs D12.2, Benign neoplasm of ascending colon D12.4, Benign neoplasm of descending colon K64.8, Other hemorrhoids CPT copyright 2020 [employer]. All rights reserved. The codes documented in this report are preliminary and upon mixologist reviewmay be revised to meet current compliance requirements. Recognized by the [employer] for promoting quality in endoscopy Shanna Funes MD ENDOSCOPY PROCEDURES Final Result * Diabetic Eye Exam (03/12/2023) Generic External Data Provider [facility] MA[facility] Final Result * US Abdominal [...] Porfirio Chicas M.D. AG: DEVIN Report ID: [id number] Reading Location: [id number] Procedure Note Porfirio Chicas MD - 08/30/2022 [...] Porfirio Chicas M.D. AG: DEVIN Report ID: [id number] Reading Location: [id number] us Bonifacio Jack MD IMG US PROCEDURES Final Result * HEPATITIS C AB W/REFL TO HCV RNA, QN, PCR (REFL) (02/14/2017 7:21 AM CURATOR OF EDUCATION) Hep C Ab NON-REACTI VE NON-REACTI VE [facility] SIGNAL TO CUT-OFF 0.01 <1.00 [facility] Blood specimen (specimen) 02/14/2017 7:21 AM CURATOR OF EDUCATION 02/15/2017 4:46 AM CURATOR OF EDUCATION Narrative Resulting Agency Comment Performing Organization Information: Site ID: [id number] Name: [facility] Address: [address] [place], [place] [address] [place] [address] Director: Frankie Sorto D.O., MPH Jose Ramon Lino MD LAB BLOOD ORDERABLES Final Res ult [facility] [place] from Last 3 Months or Most Recently Relevant to Health Maintenance Insurance MEDICARE MEDICARE [employer] SENIOR SUPPLEMENT MEDICARE [facility] Advance Directives For more information, please contact: [phone] * Full Code (Latest Code Status on [...] 9:10 AM 10/15/2019 3:23 PM Care Teams Shading Painter Relationship Specialty Start Date End Date Bonifacio Jack MD PCP - General Family Medicine 10/03/21 Aftab Enciso MD Consulting Physician Cardiology 06/26/17 Phuong Flanagan NP [address] [place] [address] DR PATEL [address] [place] [address] Nurse Practitioner Family Medicine 10/06/23 [facility] [place] [address] [address] [facility] [address] [address] Ophthalmology 01/30/10
--- OUTSIDE RECORDS SUMMARY | 2024-10-15 15:37 | XMS_ITS | Encounter Summary ---
Author Organization [facility] Healthcare Address [address] [place] [address] Care Team Providers Care Tooth Inspector Name Role Phone Aftab Enciso MD Unavailable [phone] Bonifacio Jack MD Primary Care Provider [phone] Phuong Flanagan NP Unavailable [phone] Encounter Details Date Type Department Care Team (Latest Contact Info) Description 09/28/2024 Results Follow-Up [facility] Gastroenterology at [address] [place] [address] Shanna Funes MD [address] [place] [address] [address] [place] [address] Surgical pathology Social History Tobacco [...] file Legal Sex Male 11:13 AM DIRECTOR OF ACADEMIC SUPPORT Gender Identity Not on file Sexual Orientation Not on file documented as of this encounter Plan of Treatment Not on file documented as of this encounter Visit Diagnoses Not on filedocumented in this encounter Care Teams Tooth Inspector Relationship Specialty Start Date End Date Bonifacio Jack MD PCP - General Family Medicine 10/03/21 Aftab Enciso MD Consulting Physician Cardiology 06/26/17 Phuong Flanagan NP [address] [facility] [address] PAT[address] [place] [address] Nurse Practitioner Family Medicine 10/06/23 [facility] [place] [address] [address] [facility] [address] [address] Ophthalmology 01/30/10 documented as of this encounter
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
== END 2024-10-15 16:05 | disposition home or self-care (01) ==
PROVIDERS: Emergency Provider Emergency Medicine; PCP Family Medicine
DX: S16.1XXA Strain of muscle, fascia and tendon at neck level, initial encounter (principal); E11.9 Type 2 diabetes mellitus without complications; E78.5 Hyperlipidemia, unspecified; I10 Essential (primary) hypertension; Z79.82 Long term (current) use of aspirin; Z79.84 Long term (current) use of oral hypoglycemic drugs; Z79.899 Other long term (current) drug therapy; V89.2XXA Person injured in unspecified motor-vehicle accident, traffic, initial encounter
CPT/HCPCS: 99282